=== PATIENT | male | born 1940 | race Caucasian/White ===

== ENCOUNTER 2017-07-18 10:53 | Inpatient (IN) | payer MEDICARE, OTHER ==
[2017-07-18 12:16] LABS: #Lymphocytes 1.7 thou/uL (1.20-3.40); #Monocytes 0.5 thou/uL (0.11-0.59); #Neutrophils 2.4 thou/uL (1.40-6.50); %Eosinophils 0.1 % (0.0-10.0); %Monocytes 10.5 % (0.0-10.0); %Neutrophils 52.5 % (42.0-75.0); Hemoglobin 14.4 g/dL (14.0-18.0); Mean Corpuscular HGB CONC 32.9 g/dL (32.0-36.0); Mean Corpuscular Hemoglobin 32.1 pg (27.0-31.0); Mean Corpuscular Volume 97.7 fl (80.0-94.0); Mean Platelet Volume 8.2 fL (7.4-10.4); Platelet Count 154 thou/uL (130-400); RBC Distribution Width 14.6 % (11.5-14.5); Red Blood Cell (RBC) Count 4.47 mill/uL (4.70-6.10); White Blood Cell (WBC) Count 4.6 thou/uL (4.8-10.8)
[2017-07-18 12:54] LABS: ALT (SGPT) 45 U/L (8-55); AST (SGOT) 68 U/L (5-34); Albumin 3.9 g/dL (3.4-4.8); Alkaline Phosphatase 53 U/L (40-150); Anion Gap 15 mmol/L (10-20); BUN (Urea Nitrogen) 17 mg/dL (8.4-25.7); Bilirubin, Total 0.5 mg/dL (0.2-1.2); Calc. Creatinine Clearance 0 mL/min (70-130); Calcium 9.4 mg/dL (7.8-10.44); Carbon Dioxide 27 mmol/L (23-31); Chloride 100 mmol/L (98-107); Estimated GFR-MDRD 49; Globulin 3.8 g/dL (2.4-3.5); Glucose 204 mg/dL (83-110); Potassium 4.7 mmol/L (3.5-5.1); Protein, Total 7.7 g/dL (5.8-8.1); Sodium 137 mmol/L (136-145)
--- NOTE | 2017-07-18 12:57 | RAD ---
CHEST ONE VIEW: History: Emergency exam. Pneumonia. Comparison: 08-21-16 FINDINGS: There is opacity in the right lung base. Mild interstitial markings in the left lung base. No pneumothorax. No large effusion. Cardiac silhouette and mediastinal contour is similar. IMPRESSION: Opacities in both lung bases may reflect healing pneumonia given history. POS: [facility]
--- NOTE | 2017-07-18 15:38 | HP ---
PRIMARY CARE PHYSICIAN: Jean Paul Hernandez M.D. REASON FOR ADMISSION: Acute hypoxic respiratory failure, bibasilar pneumonia, failure of outpatient therapy. HISTORY OF PRESENT ILLNESS: A 76-year-old male who has underlying history of diabetes type 2, COPD/emphysema, tobacco abuse disorder who presented to the emergency room with complaint of increasing shortness of breath, cough, and fever. The patient reports that all symptoms started last week on Sunday. At that time, he was having cough, initially low grade fever, productive of white sputum and increasing shortness of breath. Over the weekend, the patient' s symptoms got worse and that is why he called primary care physician on Sunday who prescribed him antibiotics. The patient took antibiotic on Sunday night as well as on Sunday, but he was not feeling better, though he was having persistent fever, increased cough, increased shortness of breath. He was not able to take deep breath because of cough and because of excessive coughing, his chest wall as well as abdomen and lower back was hurting. He was feeling more and more weak. This morning, he was having fever and he was not feeling any better with oral antibiotic therapy and that is why he called primary care physician who advised him to go to the emergency room for evaluation. When he presented to the emergency room, his saturation was 83% on room air. He was having low grade fever. He was tachycardic and slightly tachypneic. He was given oxygen and after that his saturation improved. He was given 2 times DuoNeb therapy. After that, patient was feeling much better. Patient reports that he is smoking about 4-6 cigarettes every day basis, but since last Sunday he was not able to smoke because that was making him more short of breath. PAST MEDICAL HISTORY: 1. Diabetes mellitus, non-insulin dependent. 2. Hypertension. 3. Dyslipidemia. 4. Osteoarthritis. 5. Gastroesophageal reflux disease. PAST SURGICAL HISTORY: Knee replacement, cardiac catheterization which showed nonobstructive coronary artery disease, and stomach surgery. PAST PSYCHIATRIC HISTORY: Reviewed and negative. SOCIAL HISTORY: Patient is . He lives at home with his . He smokes about 4-5 cigarettes every day basis. He is a long-term smoker. He denies any alcohol abuse. He denies any other illicit drug abuse. FAMILY HISTORY: No strong family history of premature coronary artery disease, stroke or cancer. ALLERGIES: DEMEROL. CURRENT HOME MEDICATIONS: Amlodipine 5 mg p.o. daily, clonidine 0.2 mg p.o. daily, folic acid 1 mg p.o. daily, glipizide 5 mg p.o. b.i.d., metformin 1000 mg p.o. daily, Aldactone 25 mg p.o. daily, vitamin D3 1000 units p.o. daily, Crestor 10 mg p.o. daily, bisoprolol 10 mg p.o. daily, methotrexate every week, and sulfasalazine 500 mg p.o. twice daily. EMERGENCY ROOM COURSE: The patient has received 2 times DuoNeb therapy. REVIEW OF SYSTEMS: The following complete review of systems was negative, unless otherwise mentioned in the HPI or below: Constitutional: Weight loss or gain, ability to conduct usual activities. Skin : Rash, itching. Eyes: Double vision, pain. ENT/Mouth: Nose bleeding, neck stiffness, pain, tenderness. Cardiovascular: Palpitations, dyspnea on exertion, orthopnea. Respiratory: Shortness of breath, wheezing, cough, hemoptysis, fever or night sweats. Gastrointestinal: Poor appetite, abdominal pain, heartburn, nausea, vomiting, constipation, or diarrhea. Genitourinary: Urgency, frequency, dysuria, nocturia. Musculoskeletal: Pain, swelling. Neurologic/Psychiatric: Anxiety, depression. Allergy/Immunologic: Skin rash, bleeding tendency. Please see my HPI for pertinent positives and negatives. All other review of system reviewed and negative except as mentioned in the HPI. PHYSICAL EXAMINATION: VITAL SIGNS: On arrival, blood pressure 159/91, pulse 102, respiratory rate 22 , temperature 99.5, saturation 83% on room air, and weight 98.4 kilograms. GENERAL: Patient is currently alert, awake, no obvious acute distress. HEENT: Normocephalic, atraumatic. Eyes: Pupils round, reactive to light. Extraocular muscles intact. ENT: Oropharynx within normal limits. Moist mucous membranes. No oral lesions. No pharyngeal erythema, no exudate. NECK: Supple, no JVD, no thyromegaly, no carotid bruit. LUNGS: Bibasilar bronchial breath sounds heard. No accessory muscles of respiration use, air entry reduced on both sides. CARDIAC: S1, S2 regular, tachycardia, no murmur, no gallop, no rub. ABDOMEN: Obesity present. Bowel sounds present. Nontender, nondistended. No organomegaly, no mass, no suprapubic tenderness. BACK: Unremarkable, no CVA tenderness. EXTREMITIES: Upper extremity passive movement of all joints are normal. Lower extremities: No edema. Good peripheral pulsation. SKIN: No skin rash. HEMATOLOGICAL SYSTEM: No lymphadenopathy. PSYCHIATRIC: Normal affect. SIGNIFICANT LABORATORY DATA: 1. EKG showing normal sinus rhythm, left axis deviation and pulmonary disease pattern. Chest x-ray based on my review interstitial markings at both base. 2. CMP: Sodium 137, potassium 4.7, chloride 100, carbon dioxide 27, anion gap 15, BUN 17, creatinine 1.41, glucose 204, calcium 9.4. Lactic acid 1.6. 3. LFT: AST 68, ALT 45, alkaline phosphatase 53, albumin 3.9. 4. CBC: WBC 4.6, hemoglobin 14.4, MCV 97.7, and platelets 154. ASSESSMENT AND PLAN: 1. Acute hypoxic respiratory failure likely due to underlying bibasilar pneumonia, community acquired. Patient is not using oxygen at home. On admission, his saturation was 83%, currently with 2-3 liters nasal cannula. He is maintaining oxygen very well. He is hemodynamically stable. He is not in respiratory distress while in hospital we will daily titrate and wean off oxygen and assess need of oxygen. 2. Bibasilar community-acquired pneumonia, most likely bacterial pneumonia, suspected Streptococcal pneumonia. We will rule out associated viral infection. We will check influenza A and B screen. Given the patient has failure of outpatient therapy and that is why we will give him cefepime 2 gram IV q.12 hourly, Levaquin 500 mg IV daily, DuoNeb therapy q.6 hourly an as needed basis and Mucinex 600 mg twice daily. 3. Chronic obstructive pulmonary disease/asthma flare-up. Patient also has associated chronic obstructive pulmonary disease flareup. We will continue with Solu-Medrol 40 mg IV q.6 hourly only for today and tomorrow we will change to p.o. prednisone. We will continue DuoNeb therapy q.6 hourly on as needed basis, Mucinex 600 mg twice daily and patient is already on empiric antibiotic therapy with cefepime and Levaquin. 4. Tobacco abuse disorder. Smoking cessation counseling given. Healthy lifestyle measures discussed with the patient. 5. Diabetes type 2. We will continue with insulin as per sliding scale protocol, diabetic diet will be given. Once we verify his home medication of diabetes, then will resume glyburide, metformin. 6. Hypertension. We will continue amlodipine 5 mg p.o. daily, bisoprolol 10 mg p.o. daily, clonidine 0.2 mg p.o. 7. Dyslipidemia. We will continue Crestor 20 mg p.o. daily. 8. Gastroesophageal reflux disease. We will continue Protonix 40 mg p.o. daily. 9. Osteoarthritis. We will continue methotrexate along with folic acid as per home dosage. 10. Deep venous thrombosis prophylaxis. Lovenox 40 mg subcu daily. 11. Gastrointestinal prophylaxis, Protonix 40 mg p.o. daily. 12. Chronic kidney disease stage 3. We will monitor renal function. Plan of care discussed with the patient in detail. 13. Sepsis with acute organ dysfunction: due to pneumonia and with respiratory failure. CODE STATUS: The patient is FULL CODE. The patient's is surrogate decision maker. Disposition plan based on clinical course. We are expecting patient's stay in the hospital more than 2 midnights. MTDD
[2017-07-18] MEDS ORDERED: cloNIDine 0.1 MG TAB PO PRN (15:48)
[2017-07-18] MEDS ORDERED: Cepastat Lozenges 1 LOZ PO PRN (15:48)
[2017-07-18] MEDS ORDERED: Ondansetron ODT 4 MG TAB PO PRN (15:48)
[2017-07-18] MEDS ORDERED: Nitroglycerin 0.4 MG TAB (25 Tab Bottle) PO PRN (15:48)
[2017-07-18] MEDS ORDERED: Milk Of Magnesia 30 ML UDCUP PO PRN (15:48)
[2017-07-18] MEDS ORDERED: Chloraseptic Spray 180 ml Bottle PO PRN (15:48)
[2017-07-18] MEDS ORDERED: Acetaminophen 325 MG TAB PO PRN ×2 (15:48)
[2017-07-18] MEDS ORDERED: Senokot 8.6 MG TAB PO PRN (15:48)
[2017-07-18] MEDS ORDERED: Dextrose 5% in Water 1,000 ML IV PRN (15:48)
[2017-07-18] MEDS ORDERED: Eucerin (Mineral Oil/Petrolatum,White) 30 gm Jar TOP PRN (15:48)
[2017-07-18] MEDS ORDERED: Artificial Tears 18 DROP/0.9 ML EA EYE PRN (15:48)
[2017-07-18] MEDS ORDERED: Sodium Chloride 0.65% Nasal 44 ML BOT EA NARE PRN (15:48)
[2017-07-18] MEDS ORDERED: Ondansetron ODT 4 MG TAB SL PRN (15:48)
[2017-07-18] MEDS ORDERED: Cefepime 2 GM in Sodium Chloride 0.9% 100 ML IVPB SCH (15:48)
[2017-07-18] MEDS ORDERED: Dextrose 50% Abboject 50 ML SYRINGE SLOW IVP PRN (15:48)
[2017-07-18] MEDS ORDERED: Ondansetron HCl/PF 4 MG/2 ML Vial IVP PRN ×2 (15:48)
[2017-07-18] MEDS ORDERED: Mag-Al 1200 mg/1200 mg/30 ML UDCUP PO PRN (15:48)
[2017-07-18] MEDS ORDERED: Benzonatate 100 MG CAP PO PRN (15:48)
[2017-07-18] MEDS ORDERED: RENALLY ADJUST ABX IVPB PRN (15:48)
[2017-07-18] MEDS ORDERED: Calcium Carbonate 500 MG ChewTAB PO PRN (15:48)
[2017-07-18] MEDS ORDERED: Loratadine 10 MG TAB PO PRN (15:48)
[2017-07-18] MEDS ORDERED: HumaLOG 300 UNITS/3 ML VIAL SC PRN (15:48)
[2017-07-18] MEDS ORDERED: hydrALAZINE 20 MG/ML VIAL SLOW IVP PRN (15:48)
[2017-07-18] MEDS ORDERED: HYDROcodone/Acetaminophen 5/325 mg Tablet PO PRN (15:48)
[2017-07-18] MEDS ORDERED: Diabetic Tussin 200 MG/10 ML UDCUP PO PRN (15:48)
[2017-07-18] MEDS ORDERED: cefTRIAXone\\ROCEPHIN 2 GM in Sodium Chloride 0.9% 100 ML IVPB SCH (16:00)
[2017-07-18] MEDS: methylPREDNISolone Sod Succ/PF 125 MG/2 ML VIAL IVP SCH ×2 (16:51→21:54)
[2017-07-18] MEDS: Sodium Chloride 0.9% 1,000 ML IV SCH (16:52)
[2017-07-18] MEDS: Cefepime 2 GM, Syringe 2.5 ML in Sterile Water 10 ML SLOW IVP SCH (17:53)
[2017-07-18] MEDS ORDERED: Oseltamivir 75 MG CAP PO SCH (19:00)
[2017-07-18] MEDS: Docusate 100 MG CAP PO SCH (19:59)
[2017-07-18] MEDS: guaiFENesin ER 600 MG TAB PO SCH (19:59)
[2017-07-18] MEDS: Temazepam 15 MG CAP PO PRN (21:43)
[2017-07-19] MEDS: Cefepime 2 GM, Syringe 2.5 ML in Sterile Water 10 ML SLOW IVP SCH ×2 (04:33→17:32)
[2017-07-19] MEDS: methylPREDNISolone Sod Succ/PF 125 MG/2 ML VIAL IVP SCH (04:33)
[2017-07-19] MEDS: HumaLOG 300 UNITS/3 ML VIAL SC PRN ×3 (05:01→17:33)
[2017-07-19] MEDS: Sodium Chloride 0.9% 1,000 ML IV SCH ×2 (05:04→20:22)
[2017-07-19 05:40] LABS: #Lymphocytes 0.7 thou/uL (1.20-3.40); #Monocytes 0.1 thou/uL (0.11-0.59); #Neutrophils 3.2 thou/uL (1.40-6.50); %Eosinophils 0.2 % (0.0-10.0); %Lymphocytes 16.6 % (21.0-51.0); %Neutrophils 81.2 % (42.0-75.0); Mean Corpuscular HGB CONC 32.4 g/dL (32.0-36.0); Mean Corpuscular Hemoglobin 31.6 pg (27.0-31.0); Mean Corpuscular Volume 97.6 fl (80.0-94.0); Mean Platelet Volume 8.2 fL (7.4-10.4); Platelet Count 152 thou/uL (130-400); RBC Distribution Width 14.4 % (11.5-14.5); Red Blood Cell (RBC) Count 4.44 mill/uL (4.70-6.10); White Blood Cell (WBC) Count 3.9 thou/uL (4.8-10.8)
[2017-07-19 05:53] LABS: Albumin 4.1 g/dL (3.4-4.8); Anion Gap 18 mmol/L (10-20); BUN (Urea Nitrogen) 22 mg/dL (8.4-25.7); BUN/Creatinine Ratio 16.06; Calc. Creatinine Clearance 0 mL/min (70-130); Calcium 9.5 mg/dL (7.8-10.44); Carbon Dioxide 25 mmol/L (23-31); Chloride 97 mmol/L (98-107); Estimated GFR-MDRD 50; Glucose 400 mg/dL (83-110); Phosphorus 3.6 mg/dL (2.3-4.7); Potassium 4.7 mmol/L (3.5-5.1); Sodium 135 mmol/L (136-145)
[2017-07-19] MEDS: guaiFENesin ER 600 MG TAB PO SCH ×2 (08:57→20:23)
[2017-07-19] MEDS: Saccharomyces boulardii 250 MG CAP PO SCH (08:57)
[2017-07-19] MEDS: Oseltamivir 75 MG CAP PO SCH ×2 (08:58→20:23)
[2017-07-19] MEDS: Docusate 100 MG CAP PO SCH ×2 (09:00→20:24)
[2017-07-19] MEDS: Insulin Detemir 100 UNITS/ML 10 UNITS in Pre-Filled Syringe 1 EACH SC SCH (09:52)
--- NOTE | 2017-07-19 14:41 | PDOC.PN ---
- Subjective Encounter Start Date: 07/19/17 Encounter Start Time: 14:41 Patient seen and examined. SOB on mild exertion. Overall feels better. Productive cough +. No overnight events - Objective Resuscitation Status: Resuscitation Status FULL:Full Resuscitation MAR Reviewed: Yes Vital Signs & Weight: Vital Signs (12 hours) Temp Pulse Resp BP Pulse Ox 07/19/17 13:29 82 16 87 L 07/19/17 12:00 98.3 F 105 H 20 154/84 H 98 07/19/17 08:00 98.0 F 105 H 20 145/75 H 96 07/19/17 06:42 76 16 07/19/17 06:22 98.0 F 99 18 134/74 99 Result Diagrams: 07/19/17 04:59 07/19/17 04:59 Additional Labs: Accuchecks 07/19/17 07/19/17 07/18/17 04:51 02:26 19:31 POC Glucose 432 H 395 H 225 H 07/18/17 16:13 POC Glucose 305 H Phys Exam - Physical Examination Constitutional: NAD Respiratory: wheezing present Scat wheezing/rhonchi +, Bibasilar rales, Mild Accessory muscles use Cardiovascular: RRR, no rub no heaves/pulsations Gastrointestinal: soft, non-tender, no distention, positive bowel sounds Musculoskeletal: no edema Neurological: non-focal, normal sensation, moves all 4 limbs Psychiatric: normal affect, A&O x 3 Dx/Plan - Plan DVT proph w/SCDs IMPRESSION: 1. Acute hypoxic resp failure 2. Influenza B 3. COPD Exacerbation 4. CAP - ?Pneumococcal 5. DM2 - uncontrolled - Patient refusing sliding scale 6. Tobacco dep/HTN/HLD/GERD/DJD/CKD 3/Hyponatremia PLAN: * Cont Tamiflu with IV Atbx/Steroids * Change Atbx and Steroids to oral in AM * Assess for home O2 * Possible DC in AM if stable * Droplet isolation * Cont to monitor * Resume home meds - bisoprolol, folic acid, Clonidine, Metformin and Glyburide * Cont sliding scale Review of Systems - Review of Systems Gastrointestinal: negative: Nausea, Vomiting, Abdominal Pain, Diarrhea, Constipation, Melena, Hematochezia Genitourinary: negative: Dysuria, Frequency, Incontinence, Hematuria, Retention - Medications/Allergies Allergies/Adverse Reactions: Allergies Allergy/AdvReac Type Severity Reaction Status Date / Time meperidine HCl [From Demerol] Allergy Severe Verified 07/18/17 16:06 Medications: Current Medications Acetaminophen (Tylenol) 650 mg PO Q4H PRN PRN Reason: Headache/Fever or Pain Hydrocodone Bitart/Acetaminophen (Kenedy 5/325) 1 tab PO Q4H PRN PRN Reason: Moderate Pain (4-6) Al Hydroxide/Mg Hydroxide (Maalox) 15 ml PO Q4H PRN PRN Reason: Heartburn or Indigestion Albuterol/Ipratropium (Duoneb) 3 ml NEB [id number] [facility] Last Admin: 07/19/17 13:29 Dose: 3 ml Albuterol/Ipratropium (Duoneb) 3 ml NEB [id number] PRN PRN Reason: SOB &/or Wheezing Last Admin: 07/18/17 21:23 Dose: 3 ml Artificial Tears (Tears Naturale) 0 drop EA EYE PRN PRN PRN Reason: Dry Eyes Benzonatate (Tessalon) 100 mg PO Q4H PRN PRN Reason: Cough Calcium Carbonate (Tums) 1,000 mg PO Q4H PRN PRN Reason: Heartburn or Indigestion Clonidine (Catapres) 0.1 mg PO Q4H PRN PRN Reason: Systolic BP > 180 Dextrose/Water (Dextrose 50%) 25 gm SLOW IVP PRN PRN PRN Reason: Hypoglycemia Docusate Sodium (Colace) 100 mg PO BID [facility] Last Admin: 07/19/17 09:00 Dose: Not Given Glucagon (Glucagon) 1 mg IM PRN PRN PRN Reason: Hypoglycemia Guaifenesin (Robitussin Sf) 200 mg PO Q4H PRN PRN Reason: Cough Guaifenesin (Mucinex) 600 mg PO Q12HR [facility] Last Admin: 07/19/17 08:57 Dose: 600 mg Hydralazine HCl (Apresoline) 10 mg SLOW IVP Q4H PRN PRN Reason: SBP Greater Than 180 Dextrose/Water (D5w) 1,000 mls @ 0 mls/hr IV .Q0M PRN; As Directed PRN Reason: Hypoglycemia Sodium Chloride (Normal Saline 0.9%) 1,000 mls @ 70 mls/hr IV .[id number] [facility] Stop: 07/20/17 15:49 Last Admin: 07/19/17 05:04 Dose: 1,000 mls Levofloxacin 500 mg/ Device 100 mls @ 100 mls/hr IVPB 1500 [facility] Cefepime HCl 2 gm/ Syringe 2.5 (ml/ Sterile Water) 12.5 mls @ 150 mls/hr SLOW IVP 0500,1700 [facility] Last Admin: 07/19/17 04:33 Dose: 12.5 mls Insulin Detemir 10 units/ (Miscellaneous Medication) 0.1 mls @ 0 mls/hr SC QAM [facility] Last Admin: 07/19/17 09:52 Dose: Not Given Insulin Detemir 10 units/ (Miscellaneous Medication) 0.1 mls @ 0 mls/hr SC HS [facility] Insulin Human Lispro (Humalog) 0 units SC .MODERATE SLIDING SC PRN PRN Reason: Moderate Correctional Scale Last Admin: 07/19/17 12:42 Dose: 10 unit Insulin Human Lispro (Humalog) 0 units SC .BEDTIME SLIDING SC PRN PRN Reason: Bedtime Correctional Scale Loratadine (Claritin) 10 mg PO DAILYPRN PRN PRN Reason: Sinus Symptoms Magnesium Hydroxide (Milk Of Magnesium) 30 ml PO DAILYPRN PRN PRN Reason: Constipation Methylprednisolone Sodium Succinate (Solu-Medrol) 20 mg IVP 0500,1300,2100 [facility] Last Admin: 07/19/17 12:40 Dose: 20 mg Mineral Oil/White Petrolatum (Eucerin Cream) 0 gm TOP BIDPRN PRN PRN Reason: Dry Skin Miscellaneous Medication (Pharmacy To Dose) 1 each IVPB PRN PRN PRN Reason: Pharmacy to dose Nitroglycerin (Nitrostat) 0.4 mg PO Q5MIN PRN PRN Reason: Chest Pain Ondansetron HCl (Zofran Odt) 4 mg PO Q6H PRN PRN Reason: Nausea/Vomiting Ondansetron HCl (Zofran) 4 mg IVP Q6H PRN PRN Reason: Nausea/Vomiting Oseltamivir Phosphate (Tamiflu) 75 mg PO BID [facility] Stop: 07/23/17 09:01 Last Admin: 07/19/17 08:58 Dose: 75 mg Pantoprazole Sodium (Protonix) 40 mg PO 2100 [facility] Phenol (Chloraseptic Gould 180 Ml Bot) 0 ml PO PRN PRN PRN Reason: Sore Throat Saccharomyces Boulardii (Florastor) 250 mg PO DAILY [facility] Last Admin: 07/19/17 08:57 Dose: 250 mg Senna (Senokot) 2 tab PO HSPRN PRN PRN Reason: Constipation Sodium Chloride ([place] Nasal Gould 0.65%) 0 ml EA NARE QIDPRN PRN PRN Reason: Nasal Congestion Temazepam (Restoril) 15 mg PO HSPRN PRN PRN Reason: Insomnia Last Admin: 07/18/17 21:43 Dose: 15 mg Throat Lozenges (Cepastat Lozenges) 1 kristian PO Q2H PRN PRN Reason: Sore Throat
[2017-07-19] MEDS: glyBURIDE 5 MG TAB PO SCH (17:32)
[2017-07-19] MEDS: Temazepam 15 MG CAP PO PRN (20:23)
[2017-07-19] MEDS ORDERED: cloNIDine 0.1 MG TAB PO SCH (21:00)
[2017-07-19] MEDS ORDERED: Insulin Detemir 100 UNITS/ML 10 UNITS in Pre-Filled Syringe 1 EACH SC SCH (21:00)
[2017-07-20 07:58] LABS: Albumin 3.7 g/dL (3.4-4.8); Anion Gap 12 mmol/L (10-20); BUN (Urea Nitrogen) 22 mg/dL (8.4-25.7); Calc. Creatinine Clearance 0 mL/min (70-130); Calcium 9.1 mg/dL (7.8-10.44); Carbon Dioxide 28 mmol/L (23-31); Chloride 103 mmol/L (98-107); Estimated GFR-MDRD 60; Glucose 319 mg/dL (83-110); Magnesium 2.2 mg/dL (1.6-2.6); Phosphorus 3.6 mg/dL (2.3-4.7); Potassium 4.2 mmol/L (3.5-5.1); Sodium 139 mmol/L (136-145)
[2017-07-20] MEDS ORDERED: predniSONE 20 MG TAB PO SCH (08:00)
[2017-07-20] MEDS ORDERED: metFORMIN 500 MG TAB PO SCH (08:00)
[2017-07-20] MEDS: glyBURIDE 5 MG TAB PO SCH (08:20)
[2017-07-20] MEDS: guaiFENesin ER 600 MG TAB PO SCH (08:21)
[2017-07-20] MEDS: Docusate 100 MG CAP PO SCH (08:21)
[2017-07-20] MEDS: Saccharomyces boulardii 250 MG CAP PO SCH (08:21)
[2017-07-20] MEDS: Oseltamivir 75 MG CAP PO SCH (08:21)
[2017-07-20] MEDS: Insulin Detemir 100 UNITS/ML 10 UNITS in Pre-Filled Syringe 1 EACH SC SCH (08:25)
[2017-07-20] MEDS ORDERED: Folic Acid 1 MG TAB PO SCH (09:00)
[2017-07-20] MEDS ORDERED: Bisoprolol Fumarate 5 MG TAB PO SCH (09:00)
[2017-07-20] MEDS ORDERED: Cefdinir 300 MG CAP PO SCH (09:00)
[2017-07-20] MEDS ORDERED: Rosuvastatin 20 MG TAB PO SCH (09:00)
[2017-07-20] MEDS ORDERED: Amlodipine 5 MG TAB PO SCH (09:00)
[2017-07-20 12:01] VITALS: BP 148/81; TEMP 98.1
--- NOTE | 2017-07-20 12:20 | DIS ---
DATE OF ADMISSION: 07/18/2017 DATE OF DISCHARGE: 07/20/2017 DISCHARGE DISPOSITION: Home. FOLLOWUP: Follow up with Dr. Jean Paul Hernandez in 1 week. Follow up with primary manager mobility, Dr. Pereyra in 10 days. ALLERGIES: DEMEROL. A chest x-ray after 4 weeks is recommended. Primary care physician is advised to follow. The patient was seen and examined on the day of discharge, denies any new complaints. No chest pain, shortness of breath or palpitations reported. BRIEF HOSPITAL COURSE: The patient is a 76-year-old white male with COPD, diabetes mellitus type 2, and tobacco dependence, presented to the hospital with shortness of breath. He was recently diagnose d with pneumonia as outpatient and was placed on Levaquin and azithromycin. He presented to the ER d ue to worsening symptoms. His chest x-ray in the emergency room was consistent with pneumonia. His O2 saturation in the emergency room was 83% on room air. He was also positive for influenza B infect ion for which he was started on Tamiflu. IV antibiotics were continued while in the hospital. He landon s done well over the last 48 hours. Home oxygen will be arranged. He will be discharged home on tap ering steroids. He was advised to follow up with his primary manager mobility in 1-2 weeks. FINAL DIAGNOSES: 1. Acute hypoxic respiratory failure secondary to chronic obstructive pulmonary disease exacerbation /pneumonia/influenza B infection. 2. Acute influenza B infection. 3. Chronic obstructive pulmonary disease exacerbation. 4. Community-acquired pneumonia. Questionable pneumococcal. Please note, the patient failed outpat ient therapy. 5. Diabetes mellitus type 2. His blood sugars were elevated, probably secondary to IV steroids. He also refused sliding scale during this hospital stay. 6. Tobacco dependence. Patient quit tobacco 4 days prior to hospitalization. 7. Hypertension. 8. Hyperlipidemia. 9. Gastroesophageal reflux disease. 10. Degenerative joint disease. 11. Chronic kidney disease stage 3. 12. Hyponatremia. DISCHARGE MEDICATIONS: 1. Tamiflu 75 mg twice a day for 3 days. 2. Prednisone 10 mg twice a day for 3 days, then 10 mg daily for 4 days, then stop. 3. The patient will complete his Levaquin and azithromycin that was started prior to hospitalization . 4. Other home medications were resumed including amlodipine 5 mg daily, bisoprolol 10 mg daily, emily min D3 400 units daily, clonidine 0.2 mg at bedtime, folic acid 1 mg daily, glyburide 10 mg b.i.d., M ucinex twice a day #10. Ibuprofen/Benadryl 2 tablets at bedtime, the patient was advised to change t his to p.r.n. Metformin 1000 mg b.i.d., methotrexate 10 mg every 7 days, Crestor 20 mg daily, Floras tor 250 mg daily, Aldactone 25 mg daily. The patient was extensively counseled on chronic obstructive pulmonary disease as well as tobacco dep endence. Information on influenza B will be provided. Total time coordinating the discharge of this patient was 33 minutes. The plan was discussed with th e son at the bedside.
== END 2017-07-20 14:42 | disposition home or self-care (01) | DRG 871 ==
LOC: ERS 10:53 → T4-A 14:17 → OBSVTOIN 14:40
PROVIDERS: ADMIT Internal Medicine; ATTEND Internal Medicine
DX: A41.9 Sepsis, unspecified organism (principal); J96.01 Acute respiratory failure with hypoxia; J10.08 Influenza due to other identified influenza virus with other specified pneumonia; E11.65 Type 2 diabetes mellitus with hyperglycemia; N18.3 Chronic kidney disease, stage 3 (moderate); J13 Pneumonia due to Streptococcus pneumoniae; J44.0 Chronic obstructive pulmonary disease with (acute) lower respiratory infection; J44.1 Chronic obstructive pulmonary disease with (acute) exacerbation; E87.1 Hypo-osmolality and hyponatremia; E11.9 Type 2 diabetes mellitus without complications; R65.20 Severe sepsis without septic shock; I12.9 Hypertensive chronic kidney disease with stage 1 through stage 4 chronic kidney disease, or unspecified chronic kidney disease; M19.90 Unspecified osteoarthritis, unspecified site; K21.9 Gastro-esophageal reflux disease without esophagitis; I25.10 Atherosclerotic heart disease of native coronary artery without angina pectoris; E78.5 Hyperlipidemia, unspecified; F17.210 Nicotine dependence, cigarettes, uncomplicated; Z96.659 Presence of unspecified artificial knee joint; Z88.5 Allergy status to narcotic agent
CPT/HCPCS: 36415; 36416; 71045; 80053; 80069; 83605; 83735; 85025; 87040; 93005; 94640; 94760; A4216; J0692; J1815; J1956; J2920; J2930; J7506; J7620

== ENCOUNTER 2017-07-25 05:14 | Inpatient (IN) | payer MEDICARE, OTHER ==
[2017-07-25] MEDS ORDERED: methylPREDNISolone Sod Succ/PF 125 MG/2 ML VIAL ONE (05:33)
[2017-07-25 05:42] LABS: #Eosinphils 0.1 thou/uL (0.0-0.7); #Lymphocytes 1.6 thou/uL (1.20-3.40); #Monocytes 0.6 thou/uL (0.11-0.59); #Neutrophils 4.6 thou/uL (1.40-6.50); %Basophils 0.4 % (0.0-1.0); %Eosinophils 1.4 % (0.0-10.0); %Lymphocytes 23.5 % (21.0-51.0); %Monocytes 8.3 % (0.0-10.0); %Neutrophils 66.4 % (42.0-75.0); Hemoglobin 15.8 g/dL (14.0-18.0); Mean Corpuscular HGB CONC 31.7 g/dL (32.0-36.0); Mean Corpuscular Hemoglobin 30.8 pg (27.0-31.0); Mean Corpuscular Volume 97.4 fl (80.0-94.0); Mean Platelet Volume 8.3 fL (7.4-10.4); Platelet Count 167 thou/uL (130-400); RBC Distribution Width 14.5 % (11.5-14.5); Red Blood Cell (RBC) Count 5.11 mill/uL (4.70-6.10); White Blood Cell (WBC) Count 6.9 thou/uL (4.8-10.8)
[2017-07-25 05:57] LABS: ALT (SGPT) 47 U/L (8-55); AST (SGOT) 29 U/L (5-34); Alkaline Phosphatase 59 U/L (40-150); Anion Gap 12 mmol/L (10-20); BUN (Urea Nitrogen) 20 mg/dL (8.4-25.7); Bilirubin, Total 0.9 mg/dL (0.2-1.2); Calc. Creatinine Clearance 0 mL/min (70-130); Calcium 9.7 mg/dL (7.8-10.44); Carbon Dioxide 28 mmol/L (23-31); Chloride 104 mmol/L (98-107); Estimated GFR-MDRD 71; Globulin 3.5 g/dL (2.4-3.5); Glucose 196 mg/dL (83-110); Potassium 4.3 mmol/L (3.5-5.1); Protein, Total 7.5 g/dL (5.8-8.1); Sodium 140 mmol/L (136-145)
[2017-07-25 06:02] LABS: CKMB 0.8 ng/mL (0-6.6); Troponin I Less than 0.010 ng/mL (< 0.028)
[2017-07-25 06:32] LABS: CO2 Tension 51.2 mmHg (35.0-45.0); pH, Arterial 7.37 (7.35-7.45)
[2017-07-25 06:33] LABS: Actual Bicarbonate (HCO3a) 28.9 mEq/L (22-26); Analyzer IN Cardio ER; Base Excess (BEa) 2.5 mEq/L (0 (+/-) 2.5); Calcium, Ionized 1.3 mmol/L (1.12-1.30); Hematocrit-ABG 49.6 % (42.0-52.0); Hemoglobin (Hb) 15.6 g/dL (14.0-18.0); O2 Tension (PaO2) 63.2 mmHg (80.0-100.0); Puncture Site RRA
[2017-07-25] MEDS ORDERED: Ondansetron HCl/PF 4 MG/2 ML Vial IVP PRN (07:09)
[2017-07-25] MEDS ORDERED: HumaLOG 300 UNITS/3 ML VIAL SC PRN (07:09)
[2017-07-25] MEDS ORDERED: Temazepam 15 MG CAP PO PRN (07:09)
[2017-07-25] MEDS ORDERED: Zolpidem Tartrate 5 MG TAB PO PRN (07:09)
[2017-07-25] MEDS ORDERED: Senokot 8.6 MG TAB PO PRN (07:09)
[2017-07-25] MEDS ORDERED: Loratadine 10 MG TAB PO PRN (07:09)
[2017-07-25] MEDS ORDERED: Dextrose 5% in Water 1,000 ML IV PRN (07:09)
[2017-07-25] MEDS ORDERED: Benzonatate 100 MG CAP PO PRN (07:09)
[2017-07-25] MEDS ORDERED: Chloraseptic Spray 180 ml Bottle PO PRN (07:09)
[2017-07-25] MEDS ORDERED: Acetaminophen 325 MG TAB PO PRN (07:09)
[2017-07-25] MEDS ORDERED: Sodium Chloride 0.65% Nasal 44 ML BOT EA NARE PRN (07:09)
[2017-07-25] MEDS ORDERED: Loperamide HCl 2 MG CAP PO PRN (07:09)
[2017-07-25] MEDS ORDERED: cloNIDine 0.1 MG TAB PO PRN (07:09)
[2017-07-25] MEDS ORDERED: hydrALAZINE 20 MG/ML VIAL SLOW IVP PRN (07:09)
[2017-07-25] MEDS ORDERED: Mag-Al 1200 mg/1200 mg/30 ML UDCUP PO PRN (07:09)
[2017-07-25] MEDS ORDERED: Artificial Tears 18 DROP/0.9 ML EA EYE PRN (07:09)
[2017-07-25] MEDS ORDERED: Dextrose 50% Abboject 50 ML SYRINGE SLOW IVP PRN (07:09)
[2017-07-25] MEDS ORDERED: Milk Of Magnesia 30 ML UDCUP PO PRN (07:09)
[2017-07-25] MEDS ORDERED: Diabetic Tussin 200 MG/10 ML UDCUP PO PRN (07:09)
[2017-07-25] MEDS ORDERED: Eucerin (Mineral Oil/Petrolatum,White) 30 gm Jar TOP PRN (07:09)
[2017-07-25] MEDS ORDERED: Ondansetron ODT 4 MG TAB PO PRN (07:09)
--- NOTE | 2017-07-25 07:44 | RAD ---
SINGLE VIEW OF THE CHEST: Comparison: 07-18-17 History: Dyspnea, shortness of breath. FINDINGS: Single view of the chest shows a normal sized cardiomediastinal silhouette. There is no evidence of c onsolidation, mass, or pleural effusion. Degenerative changes are seen in the spine. IMPRESSION: No evidence of acute cardiopulmonary disease. POS: [facility]
[2017-07-25 08:40] VITALS: BMI 29.4
[2017-07-25] MEDS ORDERED: glyBURIDE 5 MG TAB PO SCH (09:00)
[2017-07-25] MEDS: Enoxaparin Sodium 40 MG/0.4 ML SYRINGE SC SCH (09:29)
[2017-07-25] MEDS: Amlodipine 10 MG TAB PO SCH (09:30)
[2017-07-25] MEDS: Famotidine 20 MG TAB PO SCH ×2 (09:30→19:58)
[2017-07-25] MEDS: metFORMIN 500 MG TAB PO SCH ×2 (09:30→17:28)
[2017-07-25] MEDS: Folic Acid 1 MG TAB PO SCH (09:30)
[2017-07-25] MEDS: guaiFENesin ER 600 MG TAB PO SCH ×2 (09:30→19:56)
[2017-07-25] MEDS: Spironolactone 25 MG TAB PO SCH (09:30)
[2017-07-25] MEDS: Bisoprolol Fumarate 5 MG TAB PO SCH (10:57)
[2017-07-25] MEDS: methylPREDNISolone Sod Succ/PF 125 MG/2 ML VIAL IVP SCH ×3 (11:06→23:13)
--- NOTE | 2017-07-25 11:11 | CON ---
DATE OF CONSULTATION: 07/25/2017 This is a 76-year-old gentleman well known to me who has severe COPD, longstanding history of heavy t obacco abuse and sleep apnea who apparently was here a week ago with diagnosis of flu, pneumonia. X- ray shows a questionable right-sided infiltrate. He now presents with a choking sensation last night, unable to breathe and cough. He thought he was going to . X-ray last night shows clear, no acute infiltrates. He had influenza B positive during his last visi t. On most days he is relatively functional. MEDICATIONS FROM HOME: Includes prednisone 10, metformin 1000 twice a day, guaifenesin, Glyburide 10 a day, Catapres 0.2, amlodipine 5, CPAP, low flow O2, Symbicort inhaler. ALLERGIES: DEMEROL. PAST MEDICAL HISTORY: COPD, sleep apnea, diabetes, hypertension, arthritis. PAST SURGICAL HISTORY: Knee surgery, previous catheterization, abdominal surgery. SOCIAL HISTORY: Long history of tobacco abuse, still smoking. Alcohol minimal. FAMILY HISTORY: Unremarkable for any pulmonary issues. REVIEW OF SYSTEMS: Ten point negative. Please note I reviewed his old medical records, all reports and x-ray reviewed personally by me. PHYSICAL EXAMINATION: VITAL SIGNS: Blood pressure is 146/77, sats 90 on 4 liters, respirations 18, temperature 98. CHEST: Decreased breath sounds, prolonged expiration. CARDIAC: Normal S1, S2. ABDOMEN: Soft. No masses. LABORATORY DATA: White count 6000, H&H 15 and 49, platelet count normal. PO2 63, pCO2 73.37, nasal O2 4 liters. Electrolytes are normal, glucose 296. X-ray showed no acute infiltrates. IMPRESSION: 1. Chronic obstructive pulmonary disease exacerbation. 2. Diabetes. 3. Hypertension. 4. Sleep apnea. 5. Obesity. 6. Deconditioning. PLAN: I agree with present treatment, empiric antibiotics, neb treatments, steroids, nocturnal BiPAP . Ambulation. Please note this consultation note was 70 minutes of my time which 50% of the time was spent at the [facility] counseling and seeing the patient.
[2017-07-25] MEDS ORDERED: Methotrexate Sodium 2.5 MG TAB PO SCH (12:00)
--- NOTE | 2017-07-25 12:29 | HP ---
DATE OF ADMISSION: 07/25/2017 PRIMARY CARE PHYSICIAN: Dr. Jean Paul Hernandez. REASON FOR ADMISSION: Acute on chronic hypoxic respiratory failure, chronic obstructive pulmonary di sease exacerbation. HISTORY OF PRESENT ILLNESS: A 76-year-old male who was recently admitted in our hospital on 07/18/19 18. At that time, patient had acute respiratory failure from bibasilar pneumonia and he was also behzad ated for COPD flareup. He remained in hospital for 3 days and he was discharged on 07/20/2017. The patient was given tapering doses of prednisone as well as oral antibiotic therapy. The patient repor ts that after going home, he did well a couple of days, but after that, he started feeling bad again. He was having increasing shortness of breath, cough. Last night, he was not able to breathe at all . His nose was stuffed up and even with oxygen and his inhaler therapy, he was in respiratory distre ss and that is why he required to call paramedics. When the paramedics came to his home, his saturat ion was 84% on 3 liter nasal cannula. The patient was started on a nonrebreather by paramedics and a fter that, oxygen saturation improved to 99%. Patient reports that he was taking all medication what ever he was prescribed on discharge. Last time, the patient had influenza B positive, but he has fin ished influenza treatment as well. The patient reports that he did not smoke since previous hospital ization. He denies any pleuritic chest pain. He denies any fever or chills. He denies any UTI symp toms. He denies any constipation, diarrhea. He denies any dizziness, syncope. He denies any orthop amy, PND or leg swelling. ALLERGIES: DEMEROL. CURRENT HOME MEDICATIONS: Amlodipine 5 mg p.o. daily, bisoprolol 10 mg p.o. daily, vitamin D3 1000 u nits p.o. daily, clonidine 0.2 mg p.o. at bedtime, folic acid 1 mg p.o. daily, glyburide 10 mg p.o. b .i.d., ibuprofen PM 2 tablets p.o. at bedtime p.r.n., metformin 1000 mg p.o. b.i.d., methotrexate 10 mg p.o. every 7 days, Crestor 20 mg p.o. daily, Aldactone 25 mg p.o. daily, Sulfasalazine 500 mg p.o. b.i.d. REVIEW OF SYSTEMS: The following complete review of systems was negative, unless otherwise mentioned in the HPI or below: Constitutional: Weight loss or gain, ability to conduct usual activities. Skin: Rash, itching. Eyes: Double vision, pain. ENT/Mouth: Nose bleeding, neck stiffness, pain, tenderness. Cardiovascular: Palpitations, dyspnea on exertion, orthopnea. Respiratory: Shortness of breath, wheezing, cough, hemoptysis, fever or night sweats. Gastrointestinal: Poor appetite, abdominal pain, heartburn, nausea, vomiting, constipation, or diarr hea. Genitourinary: Urgency, frequency, dysuria, nocturia. Musculoskeletal: Pain, swelling. Neurologic/Psychiatric: Anxiety, depression. Allergy/Immunologic: Skin rash, bleeding tendency. Please see my HPI for pertinent positives and negatives. All other review of systems reviewed and ne gative except as mentioned in the HPI. PAST MEDICAL HISTORY: Diabetes type 2, hypertension, dyslipidemia, osteoarthritis, gastroesophageal reflux disease. PAST SURGICAL HISTORY: Cardiac catheterization which showed nonobstructive coronary artery disease, stomach surgery, knee surgery. PAST PSYCHIATRIC HISTORY: Reviewed and negative. SOCIAL HISTORY: Patient is . He lives at home with his . He used to be a heavy smoker. He did not smoke since last admission, but now he is trying to cut down smoking. He denies any alco hol abuse. He denies any other illicit drug abuse. FAMILY HISTORY: No strong family history of premature coronary artery disease, stroke or cancer. EMERGENCY ROOM COURSE: Patient was given Solu-Medrol 125 mg and DuoNeb therapy. PHYSICAL EXAMINATION: VITAL SIGNS: On arrival, blood pressure 176/109, respiratory rate 24, temperature 98.2, saturation i nitially at home 84% on 3 liter and with a nonrebreather, improved to 99% and after that his saturati on improved to 95% on 3 liter nasal cannula. GENERAL: Patient is currently alert, awake, mild respiratory distress, hypertensive. HEAD: Normocephalic, atraumatic. EYES: Pupils round, reactive to light. Extraocular muscles intact. ENT: Oropharynx within normal limits. Moist mucous membranes. No oral lesions. No pharyngeal eryt letha or exudate. NECK: Supple, no JVD, no thyromegaly, no carotid bruits. LUNGS: Bilateral air entry reduced on both sides. Few end expiratory wheezing heard. Pursed lip br eathing present. No accessory muscles of respiration in use, no rales. CARDIAC: S1, S2 regular without any murmur. ABDOMEN: Soft, obesity present. Bowel sounds present. Nontender, nondistended. No organomegaly, n o mass, no suprapubic tenderness. BACK: Unremarkable, no CVA tenderness. EXTREMITIES: Upper extremity, passive movement of all joints are normal. Lower extremity, no edema. Good peripheral pulsation. No calf tenderness. SKIN: No skin rash. HEMATOLOGICAL: No lymphadenopathy. PSYCHIATRIC: Normal affect. NEUROLOGIC: Nonfocal examination. IMAGING: EKG showing normal sinus rhythm, left axis deviation, nonspecific ST-T changes. Chest x-ra y based on my review and reported as no evidence of acute cardiopulmonary process. SIGNIFICANT LABORATORY DATA: CBC: WBC 6.9, hemoglobin 15.8, platelets 167. ABG: pH 7.37, CO2 51.2 , O2 63.2, bicarbonate 28.9 saturation 92% on nonrebreather. BMP: Sodium 140, potassium 4.3, chlori de 104, carbon dioxide 28, BUN 20, creatinine 1.02, glucose 196, calcium 9.7. LFT: AST 29, ALT 47, alkaline phosphatase 59, albumin 4.0. Cardiac enzymes negative x1. ASSESSMENT AND PLAN: 1. Acute on chronic respiratory failure with hypoxia and hypercapnia, likely due to underlying chron ic obstructive pulmonary disease exacerbation. The patient will be given oxygen to keep saturation a marichuy 92%. We will consult Intake Nurse. Patient is using oxygen therapy at home. We will monitor and titrate his oxygen requirement while in hospital. 2. Chronic obstructive pulmonary disease exacerbation. At this point, he will require admission. H e will be treated with Solu-Medrol 40 mg IV q.6 hours, Dulera 2 puffs inhalation b.i.d., DuoNeb thera py every 4 hourly and 2 hourly p.r.n., Mucinex 600 mg twice daily, Tessalon p.r.n. basis and other sy mptomatic treatment for cough. Intake Nurse will be consulted. 3. Hypertension. We will continue amlodipine 5 mg p.o. daily, Aldactone 25 mg p.o. daily, clonidine 0.2 mg p.o. at bedtime and bisoprolol 10 mg p.o. daily. 4. Diabetes type 2. We will continue insulin as per sliding scale protocol. Diabetic diet will be given. We will continue glyburide 10 mg p.o. b.i.d. along with metformin 1000 mg p.o. b.i.d. 5. Osteoarthritis. The patient is taking anti-inflammatory medications, methotrexate and sulfasalaz ine, which we will continue while in hospital. 6. Tobacco abuse disorder. Smoking cessation counseling given. Patient is currently not smoking an d reassured not to restart smoking again. 7. Dyslipidemia. Continue Crestor 20 mg p.o. at bedtime. 8. Nonobstructive coronary artery disease, currently problem is stable. 9. Deep venous thrombosis prophylaxis. Lovenox 40 mg subcutaneously daily. 10. Gastrointestinal prophylaxis. Pepcid 20 mg p.o. b.i.d. 11. Code status: The patient is FULL CODE. The patient's is surrogate decision maker. Disposition and plan based on clinical course. We are expecting patient's stay in the hospital more than 2 midnights. Plan of care discussed with the patient in detail.
[2017-07-25] MEDS: HumaLOG 300 UNITS/3 ML VIAL SC PRN ×2 (14:36→17:29)
[2017-07-25] MEDS: glyBURIDE 5 MG TAB PO SCH (17:28)
[2017-07-25] MEDS: cloNIDine 0.2 MG TAB PO SCH (19:56)
[2017-07-25] MEDS: sulfaSALAzine 500 MG TAB PO SCH (19:56)
[2017-07-25] MEDS: Rosuvastatin 20 MG TAB PO SCH (19:56)
[2017-07-25] MEDS: Mometasone/Formoterol 120 PUFF INHALER INH SCH (20:46)
[2017-07-26 05:07] LABS: #Lymphocytes 0.8 thou/uL (1.20-3.40); #Monocytes 0.1 thou/uL (0.11-0.59); #Neutrophils 7.7 thou/uL (1.40-6.50); %Basophils 0.1 % (0.0-1.0); %Eosinophils 0.1 % (0.0-10.0); %Monocytes 1.1 % (0.0-10.0); %Neutrophils 89.8 % (42.0-75.0); Hemoglobin 14.3 g/dL (14.0-18.0); Mean Corpuscular HGB CONC 32.5 g/dL (32.0-36.0); Mean Corpuscular Hemoglobin 31.7 pg (27.0-31.0); Mean Corpuscular Volume 97.6 fl (80.0-94.0); Mean Platelet Volume 8.3 fL (7.4-10.4); Platelet Count 171 thou/uL (130-400); RBC Distribution Width 14.3 % (11.5-14.5); White Blood Cell (WBC) Count 8.6 thou/uL (4.8-10.8)
[2017-07-26] MEDS: methylPREDNISolone Sod Succ/PF 125 MG/2 ML VIAL IVP SCH (05:21)
[2017-07-26] MEDS: HumaLOG 300 UNITS/3 ML VIAL SC PRN ×3 (05:24→17:53)
[2017-07-26 05:32] LABS: Anion Gap 13 mmol/L (10-20); BUN (Urea Nitrogen) 27 mg/dL (8.4-25.7); Calc. Creatinine Clearance 71 mL/min (70-130); Calcium 9.1 mg/dL (7.8-10.44); Carbon Dioxide 26 mmol/L (23-31); Chloride 103 mmol/L (98-107); Estimated GFR-MDRD 58; Glucose 363 mg/dL (83-110); Potassium 4.4 mmol/L (3.5-5.1); Sodium 138 mmol/L (136-145)
[2017-07-26] MEDS: Mometasone/Formoterol 120 PUFF INHALER INH SCH ×2 (07:24→18:37)
[2017-07-26] MEDS: glyBURIDE 5 MG TAB PO SCH ×2 (09:16→16:52)
[2017-07-26] MEDS: Spironolactone 25 MG TAB PO SCH (09:17)
[2017-07-26] MEDS: sulfaSALAzine 500 MG TAB PO SCH ×2 (09:17→20:27)
[2017-07-26] MEDS: Folic Acid 1 MG TAB PO SCH (09:17)
[2017-07-26] MEDS: metFORMIN 500 MG TAB PO SCH ×2 (09:18→16:52)
[2017-07-26] MEDS: Amlodipine 10 MG TAB PO SCH (09:19)
[2017-07-26] MEDS: guaiFENesin ER 600 MG TAB PO SCH ×2 (09:20→20:26)
[2017-07-26] MEDS: Famotidine 20 MG TAB PO SCH ×2 (09:21→20:27)
[2017-07-26] MEDS: Enoxaparin Sodium 40 MG/0.4 ML SYRINGE SC SCH (09:22)
[2017-07-26] MEDS: Bisoprolol Fumarate 5 MG TAB PO SCH (09:22)
--- NOTE | 2017-07-26 09:22 | PRG ---
DATE OF SERVICE: 07/26/2017 This morning he is better, less short of breath, less cough, less wheezing. Once again, he was not put his BiPAP last night. PHYSICAL EXAMINATION: VITAL SIGNS: Blood pressure is 130/80, sats are 95 on 3 liters, temperature 97, respirations 18. CHEST: Chest reveals decreased breath sounds, no wheezing. CARDIAC: Normal S1, S2. ABDOMEN: Soft, no masses. Electrolytes are normal. White count normal. IMPRESSION: Exacerbation of bronchitis. PLAN: Switch over to oral medication. PT. He can be discharged home tomorrow.
--- NOTE | 2017-07-26 11:19 | PDOC.PN ---
- Subjective Encounter Start Date: 07/26/17 Encounter Start Time: 10:30 -: old records requested/rev Patient seen and examined. No new complaints. No overnight events - Objective Resuscitation Status: Resuscitation Status FULL:Full Resuscitation MAR Reviewed: Yes Vital Signs & Weight: Vital Signs (12 hours) Temp Pulse Resp BP BP Pulse Ox 07/26/17 10:55 97.5 F L 89 16 120/76 96 07/26/17 10:26 90 12 07/26/17 09:19 89 120/76 07/26/17 08:00 98.6 F 89 16 130/75 96 07/26/17 07:25 90 12 07/26/17 04:00 97.6 F 88 22 H 130/83 96 07/26/17 00:45 82 18 93 L 07/25/17 23:18 97.5 F L 80 20 108/68 97 Weight Weight 217 lb I&O: 07/25/17 07/26/17 07/27/17 06:59 06:59 06:59 Intake Total 1544 300 Balance 1544 300 Result Diagrams: 07/26/17 04:29 07/26/17 04:29 Additional Labs: Accuchecks 07/26/17 07/25/17 07/25/17 05:25 20:20 16:21 POC Glucose 329 H 216 H 265 H 07/25/17 11:13 POC Glucose 310 H Phys Exam - Physical Examination Constitutional: NAD HEENT: PERRLA, moist MMs, sclera anicteric Neck: no JVD, supple Respiratory: no wheezing, no rales, no rhonchi air entry improving Cardiovascular: RRR, no significant murmur, no rub Gastrointestinal: soft, non-tender, no distention, positive bowel sounds Musculoskeletal: no edema, pulses present Neurological: non-focal, normal sensation Psychiatric: normal affect, A&O x 3 Skin: no rash, normal turgor Dx/Plan (1) Acute on chronic respiratory failure with hypoxia and hypercapnia Code(s): J96.21 - ACUTE AND CHRONIC RESPIRATORY FAILURE WITH HYPOXIA; J96.22 - ACUTE AND CHRONIC RESPIRATORY FAILURE WITH HYPERCAPNIA Status: Acute (2) COPD exacerbation Code(s): J44.1 - CHRONIC OBSTRUCTIVE PULMONARY DISEASE W (ACUTE) EXACERBATION Status: Acute (3) CAD (coronary artery disease) Code(s): I25.10 - ATHSCL HEART DISEASE OF [place] CORONARY ARTERY W/O ANG PCTRS Status: Chronic (4) Diabetes type 2, controlled Code(s): E11.9 - TYPE 2 DIABETES MELLITUS WITHOUT COMPLICATIONS Status: Chronic (5) Dyslipidemia Code(s): E78.5 - HYPERLIPIDEMIA, UNSPECIFIED Status: Chronic (6) Hypertension Code(s): I10 - ESSENTIAL (PRIMARY) HYPERTENSION Status: Chronic (7) Tobacco abuse Code(s): Z72.0 - TOBACCO USE Status: Chronic - Plan cont current plan of care, respiratory therapy * pt has significant improvement * today will change to oral meds * will continue respiratory therapy * expecting discharge tomorrow * medication reviewed as below * symptomatic treatment. * today PT evaluation Review of Systems - Review of Systems Constitutional: negative: fever, chills, sweats, weakness, malaise, other Eyes: negative: Pain, Vision Change, Conjunctivae Inflammation, Eyelid Inflammation, Redness, Other ENT: negative: Ear Pain, Ear Discharge, Nose Pain, Nose Discharge, Nose Congestion, Mouth Pain, Mouth Swelling, Throat Pain, Throat Swelling, Other Respiratory: negative: Cough, Dry, Shortness of Breath, Hemoptysis, SOB with Excertion, Pleuritic Pain, Sputum, Wheezing Cardiovascular: negative: chest pain, palpitations, orthopnea, paroxysmal nocturnal dyspnea, edema, light headedness, other Gastrointestinal: negative: Nausea, Vomiting, Abdominal Pain, Diarrhea, Constipation, Melena, Hematochezia, Other Genitourinary: negative: Dysuria, Frequency, Incontinence, Hematuria, Retention , Other Musculoskeletal: negative: Neck Pain, Shoulder Pain, Arm Pain, Back Pain, Hand Pain, Leg Pain, Foot Pain, Other Skin: negative: Rash, Lesions, Olvin, Bruising, Other - Medications/Allergies Allergies/Adverse Reactions: Allergies Allergy/AdvReac Type Severity Reaction Status Date / Time meperidine HCl [From Demerol] Allergy Severe Verified 07/18/17 16:06 Medications: Current Medications Acetaminophen (Tylenol) 650 mg PO Q4H PRN PRN Reason: Headache/Fever or Pain Al Hydroxide/Mg Hydroxide (Maalox) 30 ml PO Q6H PRN PRN Reason: Heartburn or Indigestion Albuterol/Ipratropium (Duoneb) 3 ml NEB [id number] Last Admin: 07/26/17 10:26 Dose: 3 ml Albuterol/Ipratropium (Duoneb) 3 ml NEB [id number] PRN PRN Reason: SOB &/or Wheezing Amlodipine Besylate (Norvasc) 10 mg PO DAILY [facility] Last Admin: 07/26/17 09:19 Dose: 10 mg Artificial Tears (Tears Naturale) 0 drop EA EYE PRN PRN PRN Reason: Dry Eyes Benzonatate (Tessalon) 100 mg PO Q4H PRN PRN Reason: Cough Bisoprolol Fumarate (Zebeta) 10 mg PO DAILY [facility] Last Admin: 07/26/17 09:22 Dose: 10 mg Cholecalciferol (Vitamin D3) 1,000 units PO DAILY [facility] Last Admin: 07/26/17 09:21 Dose: 1,000 units Clonidine (Catapres) 0.1 mg PO Q4H PRN PRN Reason: Systolic BP > 180 Clonidine (Catapres) 0.2 mg PO HS [facility] Last Admin: 07/25/17 19:56 Dose: 0.2 mg Dextrose/Water (Dextrose 50%) 25 gm SLOW IVP PRN PRN PRN Reason: Hypoglycemia Enoxaparin Sodium (Lovenox) 40 mg SC 0900 [facility] Last Admin: 07/26/17 09:22 Dose: 40 mg Famotidine (Pepcid) 20 mg PO BID [facility] Last Admin: 07/26/17 09:21 Dose: 20 mg Folic Acid (Folvite) 1 mg PO DAILY [facility] Last Admin: 07/26/17 09:17 Dose: 1 mg Glucagon (Glucagon) 1 mg IM PRN PRN PRN Reason: Hypoglycemia Glyburide (Diabeta) 10 mg PO BID-AC [facility] Last Admin: 07/26/17 09:16 Dose: 10 mg Guaifenesin (Robitussin Sf) 200 mg PO Q4H PRN PRN Reason: Cough Guaifenesin (Mucinex) 600 mg PO Q12HR [facility] Last Admin: 07/26/17 09:20 Dose: Not Given Hydralazine HCl (Apresoline) 10 mg SLOW IVP Q4H PRN PRN Reason: Systolic BP > 180 Dextrose/Water (D5w) 1,000 mls @ 0 mls/hr IV .Q0M PRN; As Directed PRN Reason: Hypoglycemia Insulin Human Lispro (Humalog) 0 units SC .MODERATE SLIDING SC PRN PRN Reason: Moderate Correctional Scale Last Admin: 07/26/17 05:24 Dose: 8 unit Insulin Human Lispro (Humalog) 0 units SC .BEDTIME SLIDING SC PRN PRN Reason: Bedtime Correctional Scale Loperamide HCl (Imodium) 2 mg PO PRN PRN PRN Reason: Diarrhea/Loose Stools Loratadine (Claritin) 10 mg PO DAILYPRN PRN PRN Reason: Sinus Symptoms Magnesium Hydroxide (Milk Of Magnesium) 30 ml PO DAILYPRN PRN PRN Reason: Constipation Metformin HCl (Glucophage) 1,000 mg PO BID-WM [facility] Last Admin: 07/26/17 09:18 Dose: 1,000 mg Methotrexate Sodium (Methotrexate Sodium) 10 mg PO Q7D [facility] Last Admin: 07/25/17 14:35 Dose: 10 mg Mineral Oil/White Petrolatum (Eucerin Cream) 0 gm TOP BIDPRN PRN PRN Reason: Dry Skin Mometasone Furoate/Formoterol Fumar (Dulera 200 Mcg/5 Mcg Inhaler) 2 puff INH BID-RT [facility] Last Admin: 07/26/17 07:24 Dose: 2 puff Ondansetron HCl (Zofran Odt) 4 mg PO Q6H PRN PRN Reason: Nausea/Vomiting Ondansetron HCl (Zofran) 4 mg IVP Q6H PRN PRN Reason: Nausea/Vomiting Phenol (Chloraseptic [place] 180 Ml Bot) 0 ml PO PRN PRN PRN Reason: Sore Throat Last Admin: 07/25/17 10:57 Dose: 1 spr Prednisone (Prednisone) 20 mg PO [facility] Rosuvastatin Calcium (Crestor) 20 mg PO HS [facility] Last Admin: 07/25/17 19:56 Dose: 20 mg Senna (Senokot) 2 tab PO HSPRN PRN PRN Reason: Constipation Sodium Chloride ([place] Nasal [place] 0.65%) 0 ml EA NARE QIDPRN PRN PRN Reason: Nasal Congestion Sodium Chloride (Flush - Normal Saline) 10 ml IVF Q12HR [facility] Sodium Chloride (Flush - Normal Saline) 10 ml IVF PRN PRN PRN Reason: Saline Flush Spironolactone (Aldactone) 25 mg PO QAM-[facility] Last Admin: 07/26/17 09:17 Dose: 25 mg Sulfasalazine (Azulfidine) 500 mg PO BID [facility] Last Admin: 07/26/17 09:17 Dose: 500 mg Temazepam (Restoril) 15 mg PO HSPRN PRN PRN Reason: Insomnia Zolpidem Tartrate (Ambien) 5 mg PO HSPRN PRN PRN Reason: Insomnia
[2017-07-26] MEDS: Rosuvastatin 20 MG TAB PO SCH (20:26)
[2017-07-26] MEDS: cloNIDine 0.2 MG TAB PO SCH (20:26)
[2017-07-27] MEDS: Mometasone/Formoterol 120 PUFF INHALER INH SCH (07:05)
[2017-07-27 07:22] VITALS: TEMP 97.9
[2017-07-27] MEDS ORDERED: predniSONE 20 MG TAB PO SCH (08:00)
[2017-07-27] MEDS: glyBURIDE 5 MG TAB PO SCH (08:29)
[2017-07-27] MEDS: Enoxaparin Sodium 40 MG/0.4 ML SYRINGE SC SCH (08:29)
[2017-07-27] MEDS: Folic Acid 1 MG TAB PO SCH (08:29)
[2017-07-27] MEDS: metFORMIN 500 MG TAB PO SCH (08:30)
[2017-07-27] MEDS: Spironolactone 25 MG TAB PO SCH (08:30)
[2017-07-27] MEDS: Amlodipine 10 MG TAB PO SCH (08:30)
[2017-07-27] MEDS: sulfaSALAzine 500 MG TAB PO SCH (08:30)
[2017-07-27] MEDS: Famotidine 20 MG TAB PO SCH (08:30)
[2017-07-27] MEDS: guaiFENesin ER 600 MG TAB PO SCH (08:31)
[2017-07-27] MEDS: Bisoprolol Fumarate 5 MG TAB PO SCH (09:29)
--- NOTE | 2017-07-27 10:04 | PRG ---
DATE OF SERVICE: 07/27/2017 This morning he is awake, alert, responsive. He is better. PHYSICAL EXAMINATION: VITAL SIGNS: Sats 90% on 2 liters, blood pressure 170/71, temperature 97, pulse 80. CHEST: Decreased breath sounds, there is no wheezing. CARDIAC: Normal S1-S2. ABDOMEN: Soft, no masses. IMPRESSION: 1. Chronic obstructive pulmonary disease exacerbation, bronchitis. 2. Sleep apnea. PLAN: The patient can be discharged home. He already has prednisone at home. He apparently already has antibiotics, neb treatments. CPAP at home. I will probably see him back in about a week or two .
--- NOTE | 2017-07-27 10:21 | PDOC.PN ---
- Subjective Encounter Start Date: 07/27/17 Encounter Start Time: 08:00 Patient seen and examined. No new complaints. No overnight events - Objective Resuscitation Status: Resuscitation Status FULL:Full Resuscitation MAR Reviewed: Yes Vital Signs & Weight: Vital Signs (12 hours) Temp Pulse Resp BP BP Pulse Ox 07/27/17 08:30 84 117/71 07/27/17 08:00 97.9 F 84 18 95 07/27/17 07:19 97.9 F 84 18 117/71 95 07/27/17 07:05 81 14 07/27/17 04:00 97.8 F 83 118/70 94 L 07/27/17 00:00 97.6 F 87 18 118/70 96 07/26/17 22:56 85 12 98 Weight Admit Weight 217 lb Weight 217 lb I&O: 07/26/17 07/27/17 07/28/17 06:59 06:59 06:59 Intake Total 1544 1220 240 Balance 1544 1220 240 Result Diagrams: 07/26/17 04:29 07/26/17 04:29 Additional Labs: Accuchecks 07/27/17 07/26/17 07/26/17 06:07 21:17 16:23 POC Glucose 173 H 186 H 281 H 07/26/17 11:24 POC Glucose 448 H Phys Exam - Physical Examination Constitutional: NAD HEENT: PERRLA, moist MMs, sclera anicteric Neck: no JVD, supple Respiratory: no wheezing, no rales, no rhonchi Cardiovascular: RRR, no significant murmur, no rub Gastrointestinal: soft, non-tender, no distention, positive bowel sounds Musculoskeletal: no edema, pulses present Neurological: non-focal, normal sensation Lymphatic: no nodes Psychiatric: normal affect, A&O x 3 Skin: no rash, normal turgor Dx/Plan (1) Acute on chronic respiratory failure with hypoxia and hypercapnia Code(s): J96.21 - ACUTE AND CHRONIC RESPIRATORY FAILURE WITH HYPOXIA; J96.22 - ACUTE AND CHRONIC RESPIRATORY FAILURE WITH HYPERCAPNIA Status: Acute (2) COPD exacerbation Code(s): J44.1 - CHRONIC OBSTRUCTIVE PULMONARY DISEASE W (ACUTE) EXACERBATION Status: Acute (3) CAD (coronary artery disease) Code(s): I25.10 - ATHSCL HEART DISEASE OF [place] CORONARY ARTERY W/O ANG PCTRS Status: Chronic (4) Diabetes type 2, controlled Code(s): E11.9 - TYPE 2 DIABETES MELLITUS WITHOUT COMPLICATIONS Status: Chronic (5) Dyslipidemia Code(s): E78.5 - HYPERLIPIDEMIA, UNSPECIFIED Status: Chronic (6) Hypertension Code(s): I10 - ESSENTIAL (PRIMARY) HYPERTENSION Status: Chronic (7) Tobacco abuse Code(s): Z72.0 - TOBACCO USE Status: Chronic - Plan cont current plan of care, respiratory therapy * medication reviewed as below * symptomatic treatment * see discharge red. Review of Systems - Review of Systems ENT: negative: Ear Pain, Ear Discharge, Nose Pain, Nose Discharge, Nose Congestion, Mouth Pain, Mouth Swelling, Throat Pain, Throat Swelling, Other Respiratory: negative: Cough, Dry, Shortness of Breath, Hemoptysis, SOB with Excertion, Pleuritic Pain, Sputum, Wheezing Cardiovascular: negative: chest pain, palpitations, orthopnea, paroxysmal nocturnal dyspnea, edema, light headedness, other Gastrointestinal: negative: Nausea, Vomiting, Abdominal Pain, Diarrhea, Constipation, Melena, Hematochezia, Other Genitourinary: negative: Dysuria, Frequency, Incontinence, Hematuria, Retention , Other Musculoskeletal: negative: Neck Pain, Shoulder Pain, Arm Pain, Back Pain, Hand Pain, Leg Pain, Foot Pain, Other Skin: negative: Rash, Lesions, Olvin, Bruising, Other - Medications/Allergies Allergies/Adverse Reactions: Allergies Allergy/AdvReac Type Severity Reaction Status Date / Time meperidine HCl [From Demerol] Allergy Severe Verified 07/18/17 16:06 Medications: Current Medications Acetaminophen (Tylenol) 650 mg PO Q4H PRN PRN Reason: Headache/Fever or Pain Last Admin: 07/26/17 20:26 Dose: 650 mg Al Hydroxide/Mg Hydroxide (Maalox) 30 ml PO Q6H PRN PRN Reason: Heartburn or Indigestion Albuterol/Ipratropium (Duoneb) 3 ml NEB [id number] [facility] Last Admin: 07/27/17 07:05 Dose: 3 ml Albuterol/Ipratropium (Duoneb) 3 ml NEB [id number] PRN PRN Reason: SOB &/or Wheezing Amlodipine Besylate (Norvasc) 10 mg PO DAILY [facility] Last Admin: 07/27/17 08:30 Dose: 10 mg Artificial Tears (Tears Naturale) 0 drop EA EYE PRN PRN PRN Reason: Dry Eyes Benzonatate (Tessalon) 100 mg PO Q4H PRN PRN Reason: Cough Bisoprolol Fumarate (Zebeta) 10 mg PO DAILY [facility] Last Admin: 07/27/17 09:29 Dose: 10 mg Cholecalciferol (Vitamin D3) 1,000 units PO DAILY [facility] Last Admin: 07/27/17 08:29 Dose: 1,000 units Clonidine (Catapres) 0.1 mg PO Q4H PRN PRN Reason: Systolic BP > 180 Clonidine (Catapres) 0.2 mg PO HS [facility] Last Admin: 07/26/17 20:26 Dose: 0.2 mg Dextrose/Water (Dextrose 50%) 25 gm SLOW IVP PRN PRN PRN Reason: Hypoglycemia Enoxaparin Sodium (Lovenox) 40 mg SC 0900 [facility] Last Admin: 07/27/17 08:29 Dose: 40 mg Famotidine (Pepcid) 20 mg PO BID [facility] Last Admin: 07/27/17 08:30 Dose: 20 mg Folic Acid (Folvite) 1 mg PO DAILY [facility] Last Admin: 07/27/17 08:29 Dose: 1 mg Glucagon (Glucagon) 1 mg IM PRN PRN PRN Reason: Hypoglycemia Glyburide (Diabeta) 10 mg PO BID-AC [facility] Last Admin: 07/27/17 08:29 Dose: 10 mg Guaifenesin (Robitussin Sf) 200 mg PO Q4H PRN PRN Reason: Cough Guaifenesin (Mucinex) 600 mg PO Q12HR [facility] Last Admin: 07/27/17 08:31 Dose: Not Given Hydralazine HCl (Apresoline) 10 mg SLOW IVP Q4H PRN PRN Reason: Systolic BP > 180 Dextrose/Water (D5w) 1,000 mls @ 0 mls/hr IV .Q0M PRN; As Directed PRN Reason: Hypoglycemia Insulin Human Lispro (Humalog) 0 units SC .MODERATE SLIDING SC PRN PRN Reason: Moderate Correctional Scale Last Admin: 07/26/17 17:53 Dose: 6 unit Insulin Human Lispro (Humalog) 0 units SC .BEDTIME SLIDING SC PRN PRN Reason: Bedtime Correctional Scale Loperamide HCl (Imodium) 2 mg PO PRN PRN PRN Reason: Diarrhea/Loose Stools Loratadine (Claritin) 10 mg PO DAILYPRN PRN PRN Reason: Sinus Symptoms Magnesium Hydroxide (Milk Of Magnesium) 30 ml PO DAILYPRN PRN PRN Reason: Constipation Metformin HCl (Glucophage) 1,000 mg PO BID-[facility] Last Admin: 07/27/17 08:30 Dose: 1,000 mg Methotrexate Sodium (Methotrexate Sodium) 10 mg PO Q7D [facility] Last Admin: 07/25/17 14:35 Dose: 10 mg Mineral Oil/White Petrolatum (Eucerin Cream) 0 gm TOP BIDPRN PRN PRN Reason: Dry Skin Mometasone Furoate/Formoterol Fumar (Dulera 200 Mcg/5 Mcg Inhaler) 2 puff INH BID-RT [facility] Last Admin: 07/27/17 07:05 Dose: 2 puff Ondansetron HCl (Zofran Odt) 4 mg PO Q6H PRN PRN Reason: Nausea/Vomiting Ondansetron HCl (Zofran) 4 mg IVP Q6H PRN PRN Reason: Nausea/Vomiting Phenol (Chloraseptic [place] 180 Ml Bot) 0 ml PO PRN PRN PRN Reason: Sore Throat Last Admin: 07/25/17 10:57 Dose: 1 spr Prednisone (Prednisone) 20 mg PO [facility] Last Admin: 07/27/17 08:30 Dose: 20 mg Rosuvastatin Calcium (Crestor) 20 mg PO HS [facility] Last Admin: 07/26/17 20:26 Dose: 20 mg Senna (Senokot) 2 tab PO HSPRN PRN PRN Reason: Constipation Sodium Chloride ([place] Nasal [place] 0.65%) 0 ml EA NARE QIDPRN PRN PRN Reason: Nasal Congestion Sodium Chloride (Flush - Normal Saline) 10 ml IVF Q12HR [facility] Last Admin: 07/27/17 08:31 Dose: 10 ml Sodium Chloride (Flush - Normal Saline) 10 ml IVF PRN PRN PRN Reason: Saline Flush Spironolactone (Aldactone) 25 mg PO QA-[facility] Last Admin: 07/27/17 08:30 Dose: 25 mg Sulfasalazine (Azulfidine) 500 mg PO BID [facility] Last Admin: 07/27/17 08:30 Dose: 500 mg Temazepam (Restoril) 15 mg PO HSPRN PRN PRN Reason: Insomnia Zolpidem Tartrate (Ambien) 5 mg PO HSPRN PRN PRN Reason: Insomnia
[2017-07-27 10:59] VITALS: BP 132/81
--- NOTE | 2017-07-27 11:07 | DIS ---
DATE OF ADMISSION: 07/25/2017 DATE OF DISCHARGE: 07/27/2017 PRIMARY CARE PHYSICIAN: Jean Paul Hernandez M.D. DISCHARGE DISPOSITION: Home. PRIMARY DISCHARGE DIAGNOSES: 1. Acute on chronic respiratory failure with hypoxia and hypercapnia. 2. Chronic obstructive pulmonary disease exacerbation. SECONDARY DISCHARGE DIAGNOSES: Tobacco abuse disorder, hypertension, dyslipidemia, diabetes type 2, coronary artery disease, chronic respiratory failure with hypoxia, chronic obstructive pulmonary dise ase. PRIMARY PROCEDURE/OPERATION: None. RADIOLOGICAL INVESTIGATION: Chest x-ray was unremarkable. SIGNIFICANT LABORATORY DATA: WBC 8.6, hemoglobin 14.3, platelets 171, sodium 138, creatinine 1.21. DISCHARGE MEDICATIONS: Amlodipine 5 mg p.o. daily, Tessalon 100 mg q.4 hourly p.r.n., bisoprolol 10 mg p.o. daily, vitamin D3 400 units p.o. daily, clonidine 0.2 mg p.o. at bedtime, folic acid 1 mg p.o . daily, glyburide 10 mg p.o. b.i.d., Mucinex 600 mg twice daily for 7 days, ibuprofen PM 2 tablets p .o. at bedtime p.r.n., Atrovent inhaler 2 puffs q.i.d., metformin 1000 mg p.o. b.i.d., methotrexate 1 0 mg p.o. every 7 days, Dulera 2 puffs inhalation b.i.d., prednisone 20 mg p.o. daily for 7 days, Cre stor 20 mg p.o. daily, Aldactone 25 mg p.o. daily, sulfasalazine 500 mg p.o. b.i.d., Ventolin inhaler 2 puffs q.6 hourly p.r.n. CONTRAINDICATIONS: None. CODE STATUS: FULL CODE. INPATIENT FLOWER STRIPPER: Dr. Pereyra was consulted while in hospital. ALLERGIES: DEMEROL. DISCHARGE PLAN: Post hospital, patient is advised to follow up with Dr. Pereyra and Dr. Jean Paul Hernandez as instructed. HOSPITAL COURSE: A 76-year-old male who was recently diagnosed with influenza B pneumonia and he was treated with antibiotic therapy. After discharge, he was doing well, but his condition gotten worse and patient came to the hospital at this time with increasing shortness of breath. He was diagnosed with COPD flareup. This patient was admitted by me. Please see my HPI for further details. He was admitted to medical floor. During this admission, we consulted [facility]. Patient was treate d optimally with IV steroids, DuoNeb, Dulera, and Mucinex. He had dramatic improvement in next 24-48 hours, [facility] saw this patient today and they cleared him for discharge. The patient also keen to go home today. The patient is seen and examined at bedside today. Please see my progress note from today for furthe r detail. All new medication prescription given to pharmacy.
--- NOTE | 2017-07-28 13:48 | EKG ---
Test Reason : SOB Blood Pressure : / mmHG Vent. Rate : 096 BPM Atrial Rate : 096 BPM P-R Int : 172 ms QRS Dur : 094 ms QT Int : 370 ms P-R-T Axes : 067 -50 048 degrees QTc Int : 467 ms Normal sinus rhythm Left axis deviation Low voltage QRS Confirmed by REGINA GARCIA ([id number]), story editor LIZ HILL ([id number]) on 07/28/2017 1:47:38 PM Referred By: Confirmed By:REGINA GARCIA
== END 2017-07-27 10:59 | disposition home or self-care (01) | DRG 189 ==
LOC: ERS 05:14 → ERHOLD 06:35 → T4-B 08:22
PROVIDERS: ADMIT Family Medicine; ATTEND Family Medicine
DX: J96.21 Acute and chronic respiratory failure with hypoxia (principal); J44.1 Chronic obstructive pulmonary disease with (acute) exacerbation; E11.9 Type 2 diabetes mellitus without complications; Z99.81 Dependence on supplemental oxygen; J96.22 Acute and chronic respiratory failure with hypercapnia; I10 Essential (primary) hypertension; M19.90 Unspecified osteoarthritis, unspecified site; E78.5 Hyperlipidemia, unspecified; I25.10 Atherosclerotic heart disease of native coronary artery without angina pectoris; G47.30 Sleep apnea, unspecified; E66.9 Obesity, unspecified; Z87.891 Personal history of nicotine dependence; Z88.5 Allergy status to narcotic agent; Z79.84 Long term (current) use of oral hypoglycemic drugs; Z79.52 Long term (current) use of systemic steroids; Z79.899 Other long term (current) drug therapy
CPT/HCPCS: 36415; 36416; 71045; 80048; 80053; 82553; 82805; 84484; 85025; 93005; 94640; 94660; 94760; 96374; A4216; J1650; J2930; J7506; J7620; J8610

== ENCOUNTER 2017-08-07 09:12 | Outpatient (CLI) | payer MEDICARE, OTHER ==
--- NOTE | 2017-08-07 09:42 | RAD ---
TWO VIEWS CHEST: Comparison: 07-25-17 History: Dyspnea. FINDINGS: Two views of the chest show normal sized cardiomediastinal silhouette. There is no evidence of consol idation, mass, or pleural effusion. The bones are unremarkable. IMPRESSION: No evidence of acute cardiopulmonary disease. POS: [facility]
== END 2017-08-07 09:13 | disposition home or self-care (01) ==
LOC: RAD 09:12
PROVIDERS: ATTEND Internal Medicine Pulmonary Disease
DX: R06.00 Dyspnea, unspecified (principal)
CPT/HCPCS: 71046

== ENCOUNTER 2017-10-09 12:51 | Outpatient (CLI) | payer MEDICARE, OTHER ==
--- NOTE | 2017-10-09 14:30 | RAD ---
CHEST PA AND LATERAL: History: 77-year-old male with history of dyspnea. Comparison: 08-07-17 FINDINGS: Stable scattered chronic lung changes. Heart size is normal. Atherosclerosis of the aorta. IMPRESSION: Stable chronic changes. No evidence of pneumonia or other acute process. POS: [facility]
== END 2017-10-09 12:52 | disposition home or self-care (01) ==
LOC: RAD 12:51
PROVIDERS: ATTEND Internal Medicine Pulmonary Disease
DX: R06.00 Dyspnea, unspecified (principal)
CPT/HCPCS: 71046

== ENCOUNTER 2019-08-26 12:20 | Outpatient (CLI) | payer MEDICARE, OTHER ==
--- NOTE | 2019-08-26 13:36 | RAD ---
PA AND LATERAL VIEWS CHEST: 08/26/19 HISTORY: Dyspnea. COMPARISON: 10/09/17. FINDINGS: There are changes of COPD. The heart size is normal. The aorta is tortuous. Chronic parenchymal dawn es are stable. No lobar consolidation, pneumothoraces, or pleural effusions are seen. There are degen erative changes in the spine. IMPRESSION: No acute process. POS: [facility]
== END 2019-08-26 12:21 | disposition home or self-care (01) ==
LOC: RAD 12:20
PROVIDERS: ATTEND Internal Medicine Pulmonary Disease
DX: R06.00 Dyspnea, unspecified (principal)
CPT/HCPCS: 71046

== ENCOUNTER 2019-09-06 13:29 | Emergency (ER) | payer MEDICARE, OTHER ==
[2019-09-06] MEDS ORDERED: cefTRIAXone\\ROCEPHIN 2 GM VIAL ONE (14:05)
[2019-09-06 14:11] LABS: #Eosinphils 0.2 thou/uL (0.0-0.7); #Lymphocytes 2.4 thou/uL (1.20-3.40); #Monocytes 0.5 thou/uL (0.11-0.59); #Neutrophils 5.7 thou/uL (1.40-6.50); %Basophils 0.5 % (0.0-1.0); %Eosinophils 2.7 % (0.0-10.0); %Lymphocytes 27.1 % (21.0-51.0); %Monocytes 5.7 % (0.0-10.0); %Neutrophils 63.9 % (42.0-75.0); Hemoglobin 14.7 g/dL (14.0-18.0); Mean Corpuscular Hemoglobin 30.6 pg (27.0-31.0); Mean Corpuscular Volume 92.9 fL (78.0-98.0); Platelet Count 219 thou/uL (130-400); RBC Distribution Width 13.7 % (11.5-14.5); Red Blood Cell (RBC) Count 4.79 mill/uL (4.70-6.10); White Blood Cell (WBC) Count 8.9 thou/uL (4.8-10.8)
[2019-09-06] MEDS ORDERED: methylPREDNISolone Sod Succ/PF 125 MG/2 ML VIAL ONE (14:16)
--- NOTE | 2019-09-06 14:28 | RAD ---
Chest one view HISTORY: Dyspnea. COPD. COMPARISON: 08/26/2019. FINDINGS: Cardiac silhouette is upper limits of normal. Pulmonary vasculature are unremarkable. Wides pread peripheral reticulonodular interstitial prominence is similar in appearance to the previous exam. Mild scarring at the lung bases. No lobar consolidation or evidence of pneumothorax. Old bilate ral healed rib fractures. IMPRESSION: Interstitial scarring and other chronic-type findings are stable.
[2019-09-06 14:34] LABS: ALT (SGPT) 25 U/L (8-55); AST (SGOT) 21 U/L (5-34); Albumin 4.4 g/dL (3.4-4.8); Alkaline Phosphatase 88 U/L (40-110); Anion Gap 13 mmol/L (10-20); BUN (Urea Nitrogen) 17 mg/dL (8.4-25.7); Bilirubin, Total 0.5 mg/dL (0.2-1.2); Calc. Creatinine Clearance 0 mL/min (70-130); Carbon Dioxide 29 mmol/L (23-31); Chloride 97 mmol/L (98-107); Estimated GFR-MDRD 38; Globulin 4.3 g/dL (2.4-3.5); Glucose 298 mg/dL (83-110); Potassium 4.2 mmol/L (3.5-5.1); Protein, Total 8.7 g/dL (5.8-8.1); Sodium 135 mmol/L (136-145)
[2019-09-06] MEDS ORDERED: Azithromycin 500 MG VIAL ONE (14:53)
== END 2019-09-06 17:10 | disposition home or self-care (01) ==
LOC: ERS 13:29
DX: J44.1 Chronic obstructive pulmonary disease with (acute) exacerbation (principal); E11.9 Type 2 diabetes mellitus without complications; I10 Essential (primary) hypertension; M19.90 Unspecified osteoarthritis, unspecified site; F17.210 Nicotine dependence, cigarettes, uncomplicated; Z79.899 Other long term (current) drug therapy; Z79.84 Long term (current) use of oral hypoglycemic drugs
CPT/HCPCS: 36415; 71045; 80053; 83605; 83880; 84484; 85025; 87040; 87804; 93005; 94640; 96365; 96367; 96375; J0456; J0696; J2930; J7620

== ENCOUNTER 2020-10-28 13:25 | Outpatient (CLI) | payer MEDICARE, BC | END 2020-10-28 13:26 | disposition home or self-care (01) | LOC: BICRAD 13:25 | PROVIDERS: ATTEND Internal Medicine Pulmonary Disease | DX: R06.00 Dyspnea, unspecified (principal) | CPT/HCPCS: 71046 ==

== ENCOUNTER 2020-12-10 09:36 | Outpatient (CLI) | payer MEDICARE, OTHER ==
[2020-12-10 12:00] LABS: Mean Corpuscular HGB CONC 31.3 g/dL (32.0-36.0); Mean Corpuscular Hemoglobin 29.4 pg (27.0-33.0); Mean Corpuscular Volume 94.1 fl (81.2-95.1); Mean Platelet Volume 11.3 fl (7.4-10.4); Platelet Count 236 10x3/uL (150-450); RBC Distribution Width 13.5 % (11.5-14.5); Red Blood Cell (RBC) Count 4.42 10x6/uL (4.32-5.72); White Blood Cell (WBC) Count 7.4 10x3/uL (3.5-10.5)
[2020-12-10 12:21] LABS: Anion Gap 15 mmol/L (10-20); BUN (Urea Nitrogen) 19 mg/dL (8.4-25.7); Calc. Creatinine Clearance 0 mL/min (70-130); Calcium 9.5 mg/dL (7.8-10.44); Carbon Dioxide 25 mmol/L (23-31); Chloride 100 mmol/L (98-107); Glucose 260 mg/dL (83-110); Potassium 4.9 mmol/L (3.5-5.1); Sodium 135 mmol/L (136-145)
[2020-12-10 12:42] LABS: Bilirubin Neg (Negative); Blood, Urine 25 (Negative); Clarity Cloudy (Clear); Glucose, Urine (Dipstick) >=1000 mg/dL (Negative); Ketone, Urine Negative (Negative); Leukocyte 500 (Negative); Nitrite Negative (Negative); Protein, Urine (Dipstick) 100 mg/dl (Neg-Trace); Urobilinogen Normal mg/dL (Less than 2)
[2020-12-10 13:25] LABS: Bacteria/HPF Rare-Few HPF (None Seen); RBC/HPF 0-3 HPF (0-3); Squamous Epithelial 0-3 HPF (0-3); WBC/HPF Greater Than 50 HPF (0-3)
== END 2020-12-10 09:37 | disposition home or self-care (01) ==
LOC: LABBT 09:36
PROVIDERS: ATTEND Urology
DX: Z01.818 Encounter for other preprocedural examination (principal); J44.9 Chronic obstructive pulmonary disease, unspecified
CPT/HCPCS: 80048; 81001; 85027; 87077; 87086; 87186

== ENCOUNTER → 2020-12-14 | Day surgery (SDC) | payer MEDICARE, BC ==
[2020-12-13 14:54] VITALS: BMI 27.3
[~2020-12-14] MED LIST: Dexamethasone 20 MG/5 ML VIAL ONE; Fentanyl 100 MCG/2 ML VIAL ONE; Levofloxacin 500 mg/D5W 100 ml Premix Bag ONE; Lidocaine 1% PF 5 ML VIAL ONE; Ondansetron PF 4 MG/2 ML Vial ONE; Oxybutynin 5 MG TAB ONE; PROPOFOL 200 MG/20 ML VIAL ONE; Phenazopyridine HCl 100 MG TAB ONE
== END ==
LOC: SDC 05:54
PROVIDERS: ATTEND Urology
PROC: 0T7D8DZ Dilation of Urethra with Intraluminal Device, Via Natural or Artificial Opening Endoscopic (ICD-10-PCS; principal; 2020-12-14)
DX: N40.1 Benign prostatic hyperplasia with lower urinary tract symptoms (principal); N13.8 Other obstructive and reflux uropathy; N32.81 Overactive bladder; I10 Essential (primary) hypertension; E78.5 Hyperlipidemia, unspecified; E11.9 Type 2 diabetes mellitus without complications; Z79.84 Long term (current) use of oral hypoglycemic drugs; Z79.1 Long term (current) use of non-steroidal anti-inflammatories (NSAID); Z79.899 Other long term (current) drug therapy; Z88.5 Allergy status to narcotic agent
CPT/HCPCS: J1956; J3010; L8699

== ENCOUNTER 2021-02-12 09:32 | Observation (INO) | payer MEDICARE, BC ==
[2021-02-12 10:03] LABS: #Eosinphils 0.2 thou/uL (0.0-0.7); #Lymphocytes 1.8 thou/uL (1.20-3.40); #Monocytes 0.4 thou/uL (0.11-0.59); #Neutrophils 5.9 thou/uL (1.40-6.50); %Basophils 0.5 % (0.0-1.0); %Eosinophils 1.9 % (0.0-10.0); %Lymphocytes 21.1 % (21.0-51.0); %Monocytes 5.3 % (0.0-10.0); %Neutrophils 71.2 % (42.0-75.0); Hemoglobin 13.6 g/dL (14.0-18.0); Mean Corpuscular HGB CONC 33.5 g/dL (32.0-36.0); Mean Corpuscular Hemoglobin 30.6 pg (27.0-31.0); Mean Corpuscular Volume 91.4 fL (78.0-98.0); Mean Platelet Volume 7.8 fL (7.4-10.4); Platelet Count 262 thou/uL (130-400); Red Blood Cell (RBC) Count 4.46 mill/uL (4.70-6.10); White Blood Cell (WBC) Count 8.3 thou/uL (4.8-10.8)
[2021-02-12 10:22] LABS: Anion Gap 17 mmol/L (10-20); BUN (Urea Nitrogen) 26 mg/dL (8.4-25.7); Calc. Creatinine Clearance 0 mL/min (70-130); Carbon Dioxide 25 mmol/L (23-31); Chloride 97 mmol/L (98-107); Potassium 4.9 mmol/L (3.5-5.1); Sodium 134 mmol/L (136-145)
[2021-02-12 10:23] LABS: Calcium 10.2 mg/dL (7.8-10.44); Glucose 361 mg/dL (83-110)
[2021-02-12] MEDS ORDERED: Sodium Chloride 0.9% 100 ML ONE (10:23)
[2021-02-12] MEDS ORDERED: cefTRIAXone\\ROCEPHIN 2 GM VIAL ONE (10:23)
[2021-02-12 10:40] LABS: Bilirubin Negative (Negative); Blood, Urine 2+ (Negative); Clarity Extra Turbid (Clear); Glucose, Urine (Dipstick) Greater than 1000 mg/dL (Negative); Ketone, Urine Negative (Negative); Leukocyte 500 Leu/uL (Negative); Nitrite Negative (Negative); Protein, Urine (Dipstick) 200 mg/dL (Neg-Trace); RBC/HPF 21-50 HPF (0-3); Specific Gravity, Urine 1.012 (1.002-1.036); Squamous Epithelial None Seen HPF (0-3); Urobilinogen Normal mg/dL (Less than 2); WBC/HPF Greater than 50 HPF (0-3)
[2021-02-12 10:43] LABS: Bacteria/HPF 4+ HPF (None Seen)
[2021-02-12] MEDS ORDERED: Acetaminophen 325 MG TAB PO PRN (12:23)
[2021-02-12] MEDS ORDERED: Dextrose 5% in Water 1,000 ML IV PRN (12:23)
[2021-02-12] MEDS ORDERED: HumaLOG 300 UNITS/3 ML VIAL SC PRN (12:23)
[2021-02-12] MEDS ORDERED: Dextrose 50% Abboject 50 ML SYRINGE SLOW IVP PRN (12:23)
[2021-02-12] MEDS ORDERED: Bisacodyl 5 MG TAB PO PRN (12:23)
[2021-02-12] MEDS ORDERED: Sodium Chloride 0.9% 1,000 ML IV SCH (13:30)
[2021-02-12] MEDS ORDERED: Heparin 5,000 UNITS/ML VIAL SC SCH (15:00)
[2021-02-12 16:00] VITALS: BMI 27.1
[2021-02-12 16:09] VITALS: BP 144/85; TEMP 97.6
[2021-02-12 16:23] LABS: SARS-CoV-2 NAA Rapid Test Not Detected (NotDetected)
== END 2021-02-12 17:45 | disposition home or self-care (01) ==
LOC: ERS 09:32 → ONC 11:28 → INTOOBSV 11:28
PROVIDERS: ADMIT Internal Medicine; ATTEND Internal Medicine
DX: N39.0 Urinary tract infection, site not specified (principal); N40.1 Benign prostatic hyperplasia with lower urinary tract symptoms; R33.8 Other retention of urine; R35.0 Frequency of micturition; N17.9 Acute kidney failure, unspecified; I12.9 Hypertensive chronic kidney disease with stage 1 through stage 4 chronic kidney disease, or unspecified chronic kidney disease; E11.22 Type 2 diabetes mellitus with diabetic chronic kidney disease; N18.30 Chronic kidney disease, stage 3 unspecified; E78.5 Hyperlipidemia, unspecified; M19.90 Unspecified osteoarthritis, unspecified site; N32.89 Other specified disorders of bladder; J44.9 Chronic obstructive pulmonary disease, unspecified; Z20.822 Contact with and (suspected) exposure to COVID-19; Z79.84 Long term (current) use of oral hypoglycemic drugs; Z79.899 Other long term (current) drug therapy; Z88.5 Allergy status to narcotic agent; Z96.653 Presence of artificial knee joint, bilateral
CPT/HCPCS: 76770; 80048; 82962; 85025; 87086; 87186; U0002; U0005; 36415; 36416; 51701; 81003; 81015; 96365; G0378; J0696; J0744; J3490; J7050

== ENCOUNTER 2021-04-11 09:49 | Outpatient (CLI) | payer MEDICARE, BC | END 2021-04-11 09:50 | disposition home or self-care (01) | LOC: RAD 09:49 | PROVIDERS: ATTEND Internal Medicine Pulmonary Disease | DX: R06.00 Dyspnea, unspecified (principal) | CPT/HCPCS: 71046 ==

== ENCOUNTER 2021-10-18 17:17 | Observation (INO) | payer MEDICARE, BC ==
[2021-10-18 17:58] LABS: #Basophils 0.1 thou/uL (0.0-0.2); #Eosinphils 0.6 thou/uL (0.0-0.7); #Lymphocytes 2.7 thou/uL (1.20-3.40); #Monocytes 0.5 thou/uL (0.11-0.59); #Neutrophils 4.3 thou/uL (1.40-6.50); %Basophils 1.5 % (0.0-1.0); %Eosinophils 6.8 % (0.0-10.0); %Lymphocytes 33.2 % (21.0-51.0); %Neutrophils 52.5 % (42.0-75.0); Hemoglobin 12.7 g/dL (14.0-18.0); Mean Corpuscular HGB CONC 31.7 g/dL (32.0-36.0); Mean Corpuscular Hemoglobin 29.9 pg (27.0-31.0); Mean Corpuscular Volume 94.2 fL (78.0-98.0); Mean Platelet Volume 8.4 fL (7.4-10.4); Platelet Count 173 thou/uL (130-400); RBC Distribution Width 13.3 % (11.5-14.5); Red Blood Cell (RBC) Count 4.24 mill/uL (4.70-6.10); White Blood Cell (WBC) Count 8.2 thou/uL (4.8-10.8)
[2021-10-18] MEDS ORDERED: predniSONE 20 MG TAB ONE (18:00)
[2021-10-18] MEDS ORDERED: Magnesium 2 GM/50 ML BAG (IN WATER) ONE (18:00)
[2021-10-18 18:19] LABS: ALT (SGPT) 10 U/L (8-55); AST (SGOT) 12 U/L (5-34); Albumin 4.1 g/dL (3.4-4.8); Alkaline Phosphatase 62 U/L (40-110); Anion Gap 16 mmol/L (10-20); BUN (Urea Nitrogen) 22 mg/dL (8.4-25.7); Bilirubin, Total 0.4 mg/dL (0.2-1.2); Calc. Creatinine Clearance 0 mL/min (70-130); Calcium 9.2 mg/dL (7.8-10.44); Carbon Dioxide 25 mmol/L (23-31); Chloride 101 mmol/L (98-107); Globulin 3.5 g/dL (2.4-3.5); Glucose 239 mg/dL (83-110); Magnesium 1.9 mg/dL (1.6-2.6); Potassium 4.3 mmol/L (3.5-5.1); Protein, Total 7.6 g/dL (5.8-8.1); Sodium 138 mmol/L (136-145)
[2021-10-18] MEDS ORDERED: Albuterol Sulfate 2.5 mg/3 ml Neb NEB PRN (20:48)
[2021-10-18] MEDS ORDERED: HumaLOG 300 UNITS/3 ML VIAL SC PRN (20:49)
[2021-10-18] MEDS ORDERED: Dextrose 50% Abboject 50 ML SYRINGE SLOW IVP PRN (20:49)
[2021-10-18] MEDS ORDERED: Dextrose 5% in Water 1,000 ML IV PRN (20:49)
[2021-10-18] MEDS ORDERED: Acetaminophen 325 MG TAB PO PRN (20:53)
[2021-10-18] MEDS ORDERED: Senokot S 8.6-50 MG TAB PO PRN (20:53)
[2021-10-18] MEDS ORDERED: Ondansetron PF 4 MG/2 ML Vial IVP PRN (20:53)
[2021-10-18] MEDS ORDERED: Ondansetron ODT 4 MG TAB PO PRN (20:53)
[2021-10-18] MEDS ORDERED: Sodium Chloride 0.9% 1,000 ML IV SCH (21:15)
[2021-10-18] MEDS ORDERED: Benzonatate 100 MG CAP PO PRN (21:36)
[2021-10-18 21:58] VITALS: BMI 30.9
[2021-10-18] MEDS: HumaLOG 300 UNITS/3 ML VIAL SC PRN (22:16)
[2021-10-18 22:42] LABS: SARS-CoV-2 NAA Rapid Test Not Detected (NotDetected)
[2021-10-18] MEDS ORDERED: Enoxaparin Sodium 40 MG/0.4 ML SYRINGE SC SCH (23:00)
[2021-10-18 23:12] LABS: Bacteria/HPF None Seen HPF (None Seen); Bilirubin Negative (Negative); Blood, Urine 1+ (Negative); Clarity Turbid (Clear); Glucose, Urine (Dipstick) Greater than 1000 mg/dL (Negative); Ketone, Urine Trace mg/dL (Negative); Leukocyte Negative Leu/uL (Negative); Nitrite Negative (Negative); Protein, Urine (Dipstick) 50 mg/dL (Neg-Trace); RBC/HPF 0-3 HPF (0-3); Specific Gravity, Urine 1.012 (1.002-1.036); Squamous Epithelial None Seen HPF (0-3); Urobilinogen Normal mg/dL (Less than 2); pH, Urine 5.5 (5.0-9.0)
[2021-10-19] MEDS: HumaLOG 300 UNITS/3 ML VIAL SC PRN (06:05)
[2021-10-19] MEDS ORDERED: predniSONE 20 MG TAB PO SCH (08:00)
[2021-10-19 08:06] LABS: #Lymphocytes 0.9 thou/uL (1.20-3.40); #Neutrophils 4.4 thou/uL (1.40-6.50); %Basophils 0.3 % (0.0-1.0); %Eosinophils 0.1 % (0.0-10.0); %Lymphocytes 17.4 % (21.0-51.0); %Monocytes 0.7 % (0.0-10.0); %Neutrophils 81.4 % (42.0-75.0); Hemoglobin 13.6 g/dL (14.0-18.0); Mean Corpuscular HGB CONC 32.2 g/dL (32.0-36.0); Mean Corpuscular Hemoglobin 30.2 pg (27.0-31.0); Mean Corpuscular Volume 93.9 fL (78.0-98.0); Mean Platelet Volume 7.6 fL (7.4-10.4); Platelet Count 230 thou/uL (130-400); RBC Distribution Width 13.1 % (11.5-14.5); Red Blood Cell (RBC) Count 4.51 mill/uL (4.70-6.10); White Blood Cell (WBC) Count 5.4 thou/uL (4.8-10.8)
[2021-10-19 08:25] LABS: Anion Gap 15 mmol/L (10-20); BUN (Urea Nitrogen) 22 mg/dL (8.4-25.7); Calc. Creatinine Clearance 59 mL/min (70-130); Calcium 9.6 mg/dL (7.8-10.44); Carbon Dioxide 24 mmol/L (23-31); Chloride 100 mmol/L (98-107); Glucose 280 mg/dL (83-110); Potassium 4.3 mmol/L (3.5-5.1); Sodium 135 mmol/L (136-145)
[2021-10-19] MEDS ORDERED: Bisoprolol Fumarate 5 MG TAB PO SCH (09:00)
[2021-10-19] MEDS ORDERED: Amlodipine 5 MG TAB PO SCH (09:00)
[2021-10-19] MEDS ORDERED: Spironolactone 25 MG TAB PO SCH (09:00)
[2021-10-19] MEDS ORDERED: metFORMIN 500 MG TAB PO SCH ×2 (09:15→17:00)
[2021-10-19 11:38] VITALS: BP 159/84; TEMP 97.8
[2021-10-19] MEDS ORDERED: cloNIDine 0.1 MG TAB PO SCH (21:00)
[2021-10-19] MEDS ORDERED: Rosuvastatin 20 MG TAB PO SCH (21:00)
[2021-10-19] MEDS ORDERED: Enoxaparin Sodium 40 MG/0.4 ML SYRINGE SC SCH (21:00)
== END 2021-10-19 12:09 | disposition home or self-care (01) ==
LOC: ERS 17:17 → T4-A 20:20
PROVIDERS: ADMIT Internal Medicine; ATTEND Internal Medicine
DX: J44.1 Chronic obstructive pulmonary disease with (acute) exacerbation (principal); I12.9 Hypertensive chronic kidney disease with stage 1 through stage 4 chronic kidney disease, or unspecified chronic kidney disease; E11.22 Type 2 diabetes mellitus with diabetic chronic kidney disease; N18.30 Chronic kidney disease, stage 3 unspecified; D63.1 Anemia in chronic kidney disease; E78.5 Hyperlipidemia, unspecified; J96.10 Chronic respiratory failure, unspecified whether with hypoxia or hypercapnia; R33.9 Retention of urine, unspecified; I25.10 Atherosclerotic heart disease of native coronary artery without angina pectoris; Z87.891 Personal history of nicotine dependence; Z79.84 Long term (current) use of oral hypoglycemic drugs; Z79.899 Other long term (current) drug therapy; Z88.5 Allergy status to narcotic agent; Z99.81 Dependence on supplemental oxygen; Z20.822 Contact with and (suspected) exposure to COVID-19
CPT/HCPCS: 71045; 80048; 80053; 81001; 82962 ×2; 83735; 83880; 84484; 85025 ×2; 87804 ×2; 93005; 94640 ×2; 96365; 96372; 97139; 99285; G0378 ×3; U0002; 36415; 36416; J1650; J1815; J3475; J7050; J7512; J7620

== ENCOUNTER 2021-12-03 08:41 | Emergency (ER) | payer MEDICARE, BC ==
[2021-12-03 09:48] LABS: #Eosinphils 0.2 thou/uL (0.0-0.7); #Lymphocytes 1.2 thou/uL (1.20-3.40); #Monocytes 0.3 thou/uL (0.11-0.59); #Neutrophils 5.1 thou/uL (1.40-6.50); %Basophils 0.6 % (0.0-1.0); %Eosinophils 2.4 % (0.0-10.0); %Lymphocytes 17.6 % (21.0-51.0); %Monocytes 4.3 % (0.0-10.0); %Neutrophils 75.1 % (42.0-75.0); Hemoglobin 13.4 g/dL (14.0-18.0); Mean Corpuscular HGB CONC 32.8 g/dL (32.0-36.0); Mean Corpuscular Volume 94.4 fL (78.0-98.0); Mean Platelet Volume 7.7 fL (7.4-10.4); Platelet Count 186 thou/uL (130-400); RBC Distribution Width 13.5 % (11.5-14.5); Red Blood Cell (RBC) Count 4.33 mill/uL (4.70-6.10); White Blood Cell (WBC) Count 6.8 thou/uL (4.8-10.8)
[2021-12-03 09:52] LABS: Bacteria/HPF Rare-Few HPF (None Seen); Bilirubin Negative (Negative); Blood, Urine Negative (Negative); Clarity Clear (Clear); Glucose, Urine (Dipstick) 300 mg/dL (Negative); Ketone, Urine Negative (Negative); Leukocyte Negative Leu/uL (Negative); Nitrite Negative (Negative); Protein, Urine (Dipstick) 100 mg/dL (Neg-Trace); RBC/HPF 0-3 HPF (0-3); Specific Gravity, Urine 1.013 (1.002-1.036); Squamous Epithelial 0-3 HPF (0-3); Urobilinogen Normal mg/dL (Less than 2); WBC/HPF 0-3 HPF (0-3); pH, Urine 6.5 (5.0-9.0)
[2021-12-03 10:12] LABS: ALT (SGPT) 20 U/L (8-55); AST (SGOT) 18 U/L (5-34); Albumin 4.1 g/dL (3.4-4.8); Alkaline Phosphatase 56 U/L (40-110); Anion Gap 15 mmol/L (10-20); BUN (Urea Nitrogen) 24 mg/dL (8.4-25.7); Bilirubin, Total 0.6 mg/dL (0.2-1.2); Calc. Creatinine Clearance 0 mL/min (70-130); Calcium 9.4 mg/dL (7.8-10.44); Carbon Dioxide 26 mmol/L (23-31); Chloride 100 mmol/L (98-107); Globulin 3.9 g/dL (2.4-3.5); Glucose 257 mg/dL (83-110); Potassium 4.4 mmol/L (3.5-5.1); Sodium 137 mmol/L (136-145)
== END 2021-12-03 10:53 | disposition home or self-care (01) ==
LOC: ERS 08:41
DX: R33.9 Retention of urine, unspecified (principal); E11.9 Type 2 diabetes mellitus without complications; I10 Essential (primary) hypertension; M19.90 Unspecified osteoarthritis, unspecified site; J44.9 Chronic obstructive pulmonary disease, unspecified; Z85.828 Personal history of other malignant neoplasm of skin; Z87.891 Personal history of nicotine dependence
CPT/HCPCS: 36415; 51702; 80053; 81003; 81015; 85025; 93005

== ENCOUNTER 2021-12-06 12:17 | Emergency (ER) | payer MEDICARE, BC ==
[2021-12-06 15:06] LABS: #Basophils 0.1 thou/uL (0.0-0.2); #Eosinphils 0.5 thou/uL (0.0-0.7); #Lymphocytes 2.5 thou/uL (1.20-3.40); #Monocytes 0.5 thou/uL (0.11-0.59); #Neutrophils 4.8 thou/uL (1.40-6.50); %Basophils 0.9 % (0.0-1.0); %Eosinophils 6.3 % (0.0-10.0); %Lymphocytes 29.9 % (21.0-51.0); %Monocytes 6.2 % (0.0-10.0); %Neutrophils 56.8 % (42.0-75.0); Hemoglobin 13.7 g/dL (14.0-18.0); Mean Corpuscular Hemoglobin 29.9 pg (27.0-31.0); Mean Corpuscular Volume 93.3 fL (78.0-98.0); Mean Platelet Volume 8.1 fL (7.4-10.4); Platelet Count 196 thou/uL (130-400); RBC Distribution Width 13.4 % (11.5-14.5); Red Blood Cell (RBC) Count 4.57 mill/uL (4.70-6.10); White Blood Cell (WBC) Count 8.4 thou/uL (4.8-10.8)
[2021-12-06 15:45] LABS: Bilirubin Negative (Negative); Blood, Urine Negative (Negative); Clarity Clear (Clear); Glucose, Urine (Dipstick) 150 mg/dL (Negative); Ketone, Urine Negative (Negative); Leukocyte 500 Leu/uL (Negative); Nitrite Negative (Negative); Protein, Urine (Dipstick) 100 mg/dL (Neg-Trace); RBC/HPF 0-3 HPF (0-3); Specific Gravity, Urine 1.021 (1.002-1.036); Squamous Epithelial 0-3 HPF (0-3); Urobilinogen Normal mg/dL (Less than 2); WBC/HPF 21-50 HPF (0-3); pH, Urine 5.5 (5.0-9.0)
[2021-12-06 15:46] LABS: Bacteria/HPF 1+ HPF (None Seen)
[2021-12-06 15:56] LABS: ALT (SGPT) 29 U/L (8-55); AST (SGOT) 31 U/L (5-34); Albumin 4.2 g/dL (3.4-4.8); Alkaline Phosphatase 59 U/L (40-110); Anion Gap 17 mmol/L (10-20); BUN (Urea Nitrogen) 23 mg/dL (8.4-25.7); Bilirubin, Total 0.4 mg/dL (0.2-1.2); Calc. Creatinine Clearance 0 mL/min (70-130); Calcium 9.7 mg/dL (7.8-10.44); Carbon Dioxide 23 mmol/L (23-31); Chloride 101 mmol/L (98-107); Globulin 4.1 g/dL (2.4-3.5); Glucose 115 mg/dL (83-110); Potassium 4.9 mmol/L (3.5-5.1); Protein, Total 8.3 g/dL (5.8-8.1); Sodium 136 mmol/L (136-145)
== END 2021-12-06 16:51 | disposition home or self-care (01) ==
LOC: ERS 12:17
DX: N39.0 Urinary tract infection, site not specified (principal); E11.9 Type 2 diabetes mellitus without complications; I10 Essential (primary) hypertension; J44.9 Chronic obstructive pulmonary disease, unspecified; M19.90 Unspecified osteoarthritis, unspecified site; Z85.828 Personal history of other malignant neoplasm of skin; Z87.891 Personal history of nicotine dependence
CPT/HCPCS: 71045; 80053; 81003; 81015; 84484; 85025; 93005

== ENCOUNTER 2022-02-17 12:17 | Outpatient (CLI) | payer MEDICARE, BC | END 2022-02-17 12:18 | disposition home or self-care (01) | LOC: RAD 12:17 | PROVIDERS: ATTEND Internal Medicine | DX: J44.9 Chronic obstructive pulmonary disease, unspecified (principal) | CPT/HCPCS: 71046 ==

== ENCOUNTER 2022-05-12 09:31 | Outpatient (CLI) | payer MEDICARE, BC | END 2022-05-12 09:32 | disposition home or self-care (01) | LOC: RAD 09:31 | PROVIDERS: ATTEND Internal Medicine | DX: J44.9 Chronic obstructive pulmonary disease, unspecified (principal); J98.4 Other disorders of lung | CPT/HCPCS: 71046 ==

== ENCOUNTER 2022-10-31 09:36 | Outpatient (CLI) | payer MEDICARE, BC | END 2022-10-31 09:37 | disposition home or self-care (01) | LOC: RAD 09:36 | PROVIDERS: ATTEND Internal Medicine | DX: R06.00 Dyspnea, unspecified (principal) | CPT/HCPCS: 71046 ==

== ENCOUNTER 2023-05-28 11:26 | Emergency (ER) | payer MEDICARE, BC ==
[2023-05-28 12:11] LABS: #Eosinphils 0.1 thou/uL (0.0-0.7); #Monocytes 0.6 thou/uL (0.11-0.59); #Neutrophils 6.6 thou/uL (1.40-6.50); %Basophils 0.4 % (0.0-1.0); %Eosinophils 1.2 % (0.0-10.0); %Lymphocytes 22.4 % (21.0-51.0); %Monocytes 5.8 % (0.0-10.0); Hematocrit 41.7 % (42.0-52.0); Hemoglobin 12.8 g/dL (14.0-18.0); Mean Corpuscular HGB CONC 30.7 g/dL (32.0-36.0); Mean Corpuscular Hemoglobin 29.6 pg (27.0-31.0); Mean Corpuscular Volume 96.3 fl (78.0-98.0); Mean Platelet Volume 9.8 fL (7.4-10.4); Platelet Count 238 10x3/uL (130-400); Red Blood Cell (RBC) Count 4.33 mill/uL (4.70-6.10); White Blood Cell (WBC) Count 9.5 10x3/uL (4.8-10.8)
[2023-05-28 12:36] LABS: ALT (SGPT) 11 U/L (8-55); AST (SGOT) 14 U/L (5-34); Albumin 4.1 g/dL (3.4-4.8); Alkaline Phosphatase 75 U/L (40-110); Anion Gap 15 mmol/L (10-20); BUN (Urea Nitrogen) 18 mg/dL (8.4-25.7); Bilirubin, Total 0.5 mg/dL (0.2-1.2); Calc. Creatinine Clearance 0 mL/min (70-130); Calcium 9.6 mg/dL (7.8-10.44); Carbon Dioxide 33 mmol/L (23-31); Chloride 98 mmol/L (98-107); Estimated GFR 43; Globulin 4.4 g/dL (2.4-3.5); Glucose 133 mg/dL (83-110); Potassium 4.6 mmol/L (3.5-5.1); Protein, Total 8.5 g/dL (5.8-8.1); Sodium 141 mmol/L (136-145)
[2023-05-28 12:41] LABS: Troponin I Less than 0.010 ng/mL (< 0.028)
[2023-05-28] MEDS ORDERED: methylPREDNISolone Sod Succ/PF 125 MG/2 ML VIAL ONE (13:13)
== END 2023-05-28 15:11 | disposition home or self-care (01) ==
LOC: ERS 11:26
DX: T14.8XXA Other injury of unspecified body region, initial encounter (principal); J44.1 Chronic obstructive pulmonary disease with (acute) exacerbation; E11.9 Type 2 diabetes mellitus without complications; Z87.891 Personal history of nicotine dependence; I10 Essential (primary) hypertension; W19.XXXA Unspecified fall, initial encounter
CPT/HCPCS: 36415; 70450; 71045; 80053; 83605; 84484; 85025; 87040; 93005; 96374; J2930

== ENCOUNTER 2023-12-30 09:09 | Observation (INO) | payer MEDICARE, BC ==
[2023-12-30] MEDS ORDERED: Metoprolol Tartrate 5 MG (5 mL) VIAL ONE (09:30)
[2023-12-30 09:48] LABS: #Basophils 0.03 10x3/uL (0.0-0.2); %Basophils 0.3 % (0.0-1.0); %Eosinophils 2.1 % (0.0-10.0); %Lymphocytes 16.6 % (21.0-51.0); %Monocytes 6.8 % (0.0-10.0); %Neutrophils 73.9 % (42.0-75.0); Hematocrit 42.2 % (42.0-52.0); Hemoglobin 13.1 g/dL (14.0-18.0); Mean Corpuscular Hemoglobin 28.8 pg (27.0-31.0); Mean Corpuscular Volume 92.7 fL (78.0-98.0); Mean Platelet Volume 10.3 fL (7.4-10.4); Platelet Count 189 10x3/uL (130-400); RBC Distribution Width 14.9 % (11.5-14.5); Red Blood Cell (RBC) Count 4.55 mill/uL (4.70-6.10)
[2023-12-30] MEDS ORDERED: dilTIAZem 25 MG/5 ML VIAL ONE (09:55)
[2023-12-30 10:14] LABS: Troponin I Less than 0.010 ng/mL (< 0.028)
[2023-12-30] MEDS ORDERED: Magnesium 2 GM/50 ML BAG (IN WATER) ONE (10:36)
[2023-12-30] MEDS ORDERED: methylPREDNISolone Sod Succ/PF 125 MG/2 ML VIAL ONE (10:36)
[2023-12-30] MEDS ORDERED: dilTIAZem 125 MG/25 ML SDV ONE (10:37)
[2023-12-30 11:06] LABS: ALT (SGPT) 11 U/L (8-55); AST (SGOT) 15 U/L (5-34); Albumin 3.5 g/dL (3.4-4.8); Alkaline Phosphatase 68 U/L (40-110); Anion Gap 19 mmol/L (10-20); BUN (Urea Nitrogen) 16 mg/dL (8.4-25.7); Bilirubin, Total 0.7 mg/dL (0.2-1.2); Calc. Creatinine Clearance 0 mL/min (70-130); Calcium 9.5 mg/dL (7.8-10.44); Carbon Dioxide 19 mmol/L (23-31); Chloride 100 mmol/L (98-107); Estimated GFR 71; Glucose 199 mg/dL (83-110); Lipase 24 U/L (8-78); Magnesium 1.9 mg/dL (1.6-2.6); Potassium 4.6 mmol/L (3.5-5.1); Protein, Total 7.5 g/dL (5.8-8.1); Sodium 133 mmol/L (136-145)
[2023-12-30] MEDS ORDERED: Acetaminophen 325 MG TAB PO SCH (12:45)
[2023-12-30] MEDS ORDERED: Enoxaparin 80 MG (0.8 mL) SYRINGE SC SCH ×2 (13:00→21:00)
[2023-12-30 13:27] LABS: Troponin I Less than 0.010 ng/mL (< 0.028)
[2023-12-30] MEDS ORDERED: Ipratropium/Albuterol 3 ML NEB NEB PRN (14:05)
[2023-12-30] MEDS: Enoxaparin 80 MG (0.8 mL) SYRINGE SC SCH ×2 (15:20→20:22)
[2023-12-30 15:53] VITALS: BMI 23.0
[2023-12-30 16:42] LABS: INR-International Normal Ratio 1.1; PTT 35.6 sec (22.9-36.1); Prothrombin Time 14.1 sec (12.0-14.7)
[2023-12-30] MEDS: Budesonide 0.25 MG/2 ML NEB INH SCH (18:43)
[2023-12-30] MEDS: Arformoterol 15 MCG/2 ML NEB NEB SCH (18:43)
[2023-12-30] MEDS: dilTIAZem ER 60 MG CAP PO SCH (20:22)
[2023-12-30] MEDS ORDERED: Insulin Lispro 100 UNIT/ML 10 ML VIAL SC PRN ×2 (20:48)
[2023-12-30] MEDS ORDERED: Glucagon 1 MG/ML KIT IM PRN (20:48)
[2023-12-30] MEDS ORDERED: Dextrose 5% in Water 1,000 ML IV PRN (20:48)
[2023-12-30] MEDS ORDERED: Dextrose 50% Abboject 50 ML SYRINGE SLOW IVP PRN (20:48)
[2023-12-30] MEDS ORDERED: metFORMIN 500 MG TAB PO SCH (21:00)
[2023-12-30] MEDS ORDERED: dilTIAZem ER 60 MG CAP PO SCH (21:00)
[2023-12-30] MEDS: glyBURIDE 5 MG TAB PO SCH (21:44)
[2023-12-31 06:43] LABS: #Basophils Less than 0.03 10x3/uL (0.0-0.2); #Eosinphils Less than 0.03 10x3/uL (0.0-0.7); %Neutrophils 79.7 % (42.0-75.0); Hematocrit 39.6 % (42.0-52.0); Hemoglobin 12.4 g/dL (14.0-18.0); Mean Corpuscular HGB CONC 31.3 g/dL (32.0-36.0); Mean Corpuscular Hemoglobin 28.6 pg (27.0-31.0); Mean Corpuscular Volume 91.2 fL (78.0-98.0); Mean Platelet Volume 10.2 fL (7.4-10.4); Platelet Count 227 10x3/uL (130-400); RBC Distribution Width 14.6 % (11.5-14.5); Red Blood Cell (RBC) Count 4.34 mill/uL (4.70-6.10)
[2023-12-31 06:59] LABS: Anion Gap 13 mmol/L (10-20); Calc. Creatinine Clearance 48 mL/min (70-130); Calcium 9.8 mg/dL (7.8-10.44); Carbon Dioxide 32 mmol/L (23-31); Chloride 95 mmol/L (98-107); Estimated GFR 57; Glucose 256 mg/dL (83-110); Potassium 4.2 mmol/L (3.5-5.1); Sodium 136 mmol/L (136-145)
[2023-12-31 08:16] LABS: BUN (Urea Nitrogen) 22 mg/dL (8.4-25.7)
[2023-12-31] MEDS: metFORMIN 500 MG TAB PO SCH (09:37)
[2023-12-31] MEDS: dilTIAZem CD 120 MG CAP PO SCH (09:37)
[2023-12-31 11:53] VITALS: BMI 23.0
[2023-12-31 14:31] VITALS: BP 157/94; TEMP 98.2
[2023-12-31] MEDS ORDERED: Dronedarone HCl 400 MG TAB PO SCH (17:00)
[2023-12-31] MEDS ORDERED: Apixaban 5 MG TAB PO SCH (21:00)
[2024-01-01] MEDS ORDERED: Spironolactone 25 MG TAB PO SCH (08:00)
== END 2023-12-31 14:33 | disposition home or self-care (01) ==
LOC: ERS 09:09 → 2NO 14:25
PROVIDERS: ADMIT Hospitalist; ATTEND Internal Medicine
PROC: B246ZZZ Ultrasonography of Right and Left Heart (ICD-10-PCS; principal; 2023-12-30)
DX: J96.21 Acute and chronic respiratory failure with hypoxia (principal); I07.1 Rheumatic tricuspid insufficiency; I48.0 Paroxysmal atrial fibrillation; J44.9 Chronic obstructive pulmonary disease, unspecified; E11.22 Type 2 diabetes mellitus with diabetic chronic kidney disease; I12.9 Hypertensive chronic kidney disease with stage 1 through stage 4 chronic kidney disease, or unspecified chronic kidney disease; N18.2 Chronic kidney disease, stage 2 (mild); D64.9 Anemia, unspecified; Z88.5 Allergy status to narcotic agent; Z79.84 Long term (current) use of oral hypoglycemic drugs; Z79.899 Other long term (current) drug therapy
CPT/HCPCS: 71045; 80048; 82962; 83690; 83735; 83880; 84484 ×2; 85025; 85610; 85730; 93005; 93306; 94640 ×3; 96365; 96366; 96375; 97530; 97535; 99285; J1650 ×2; J2930; J3475; 36415; 36416; 80053; 84443; 96372; G0378; J7626